=== PATIENT | male | born 1940 | race Caucasian/White ===

== ENCOUNTER → 2016-10-26 | Outpatient (CLI) | payer MEDICARE, MEDICAID ==
[2016-10-26 08:25] LABS: ALBUMIN 3.7 GM/DL (3.2-5.2); ALBUMIN/GLOBULIN RATIO 1.48 (1.00-1.93); ALKALINE PHOSPHATASE 85 U/L (45-117); ALT/SGPT 26 U/L (12-78); ANION GAP 7 MEQ/L (8-16); AST/SGOT 18 U/L (15-37); BILIRUBIN,TOTAL 1.8 MG/DL (0.2-1.0); BLOOD UREA NITROGEN 27 MG/DL (7-18); CALCIUM LEVEL 8.4 MG/DL (8.8-10.2); CARBON DIOXIDE LEVEL 28 MEQ/L (21-32); CHLORIDE LEVEL 108 MEQ/L (98-107); CHOLESTEROL LEVEL 122 MG/DL (<200); CREATININE FOR GFR 1.18 MG/DL (0.70-1.30); GLOMERULAR FILTRATION RATE > 60.0 (>42); GLUCOSE, FASTING 149 MG/DL (83-110); POTASSIUM SERUM 4.2 MEQ/L (3.5-5.1); SODIUM LEVEL 143 MEQ/L (136-145); TOTAL PROTEIN 6.2 GM/DL (6.4-8.2); TRIGLYCERIDES LEVEL 149 MG/DL (<150)
== END ==
LOC: M LAB 07:32
PROVIDERS: ATTEND Nurse Practitioner Family
DX: I11.9 Hypertensive heart disease without heart failure (principal); E78.4 Other hyperlipidemia; E11.9 Type 2 diabetes mellitus without complications

== ENCOUNTER 2016-12-09 18:31 | Emergency (ER) | payer MEDICARE, MEDICAID ==
[~2016-12-09] VITALS: Ht 162.6 cm; Wt 78.0 kg
[2016-12-09] MEDS ORDERED: NABU500T PO (18:42)
[2016-12-09] MEDS ORDERED: GLIP10TA58 PO (18:42)
[2016-12-09] MEDS ORDERED: ATOR1TAB21 PO (18:42)
[2016-12-09] MEDS ORDERED: ALLO100T PO (18:42)
[2016-12-09] MEDS ORDERED: ENAL20TA PO (18:42)
[2016-12-09] MEDS ORDERED: TRAD5TAB PO (18:42)
[2016-12-09] MEDS ORDERED: ATEN25TA PO (18:42)
[2016-12-09] MEDS ORDERED: ALBUTEROL SULFATE 2.5 MG/0.5 ML INH NEB SOLN NEB ONE (20:15)
[2016-12-09 20:27] LABS: BASO % 0.2 % (0.0-1.0); EOS # 0.4 K/mm3 (0.0-0.50); EOS % 2.2 % (0.0-3.0); LARGE UNSTAINED CELL # 0.2 K/mm3 (0.0-0.4); LARGE UNSTAINED CELL % 0.9 % (0.0-4.0); LYMPH # 1.4 K/mm3 (1.5-4.5); LYMPH % 8.1 % (24.0-44.0); MEAN CORPUSCULAR HEMOGLOBIN 32.2 pg (27.0-33.0); MEAN CORPUSCULAR HGB CONC 32.9 g/dl (32.0-36.5); MEAN CORPUSCULAR VOLUME 97.8 fl (80.0-96.0); MONO # 1.3 K/mm3 (0.0-0.8); MONO % 7.2 % (0.0-5.0); NEUTROPHILS # 14.4 K/mm3 (1.8-7.7); NEUTROPHILS % 81.5 % (36.0-66.0); PLATELET COUNT, AUTOMATED 212 k/mm3 (150-450); RED CELL DISTRIBUTION WIDTH 13.6 % (11.5-14.5); WHITE BLOOD COUNT 17.7 K/mm3 (4.0-10.0)
[2016-12-09 20:46] LABS: CALCIUM LEVEL 8.1 MG/DL (8.8-10.2); CREATININE FOR GFR 1.91 MG/DL (0.70-1.30); GLOMERULAR FILTRATION RATE 36.9 (>42)
[2016-12-09] MEDS ORDERED: NS 500 ML IV ONE (21:00)
[2016-12-09] MEDS ORDERED: MUCI600T34 PO (21:43)
[2016-12-09] MEDS ORDERED: DOXY100C37 PO (21:43)
[2016-12-09] MEDS ORDERED: ALBU17IN2 INH (21:43)
[2016-12-09] MEDS ORDERED: DOXYCYCLINE HYCLATE 100 MG TAB PO ONE (21:45)
[2016-12-09 22:04] VITALS: BP 123/67
--- NOTE | 2016-12-10 07:18 | ECGEPIP ---
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 Order Number: [id number] Reading MD: Jimmy Beauchamp Measurements Intervals [place] Rate: 56 P: 12 [place]: 178 QRS: -35 QRSD: 82 T: -7 QT: 382 QTc: 370 Interpretive Statements SINUS BRADYCARDIA MODERATE VOLTAGE CRITERIA FOR LVH, CONSIDER NORMAL VARIANT INFERIOR MYOCARDIAL INFARCTION, PROBABLY OLD SIMILAR TO 03/28/14 Electronically Signed On 12-10-2016 7:17:55 EDT by Jimmy Beauchamp
--- NOTE | 2016-12-10 07:46 | REP ---
Clinical: Shortness of breath . Comparison: 09/08/2013 . Technique: PA and lateral. Findings: The mediastinum and cardiac silhouette are normal. The lung dickerson are clear and without acute consolidation, effusion, or pneumothorax. The skeletal structures are intact and normal. Impression: 1. No acute cardiopulmonary process. Signed by Braulio Rivera MD 12/10/2016 07:38 A
[2016-12-10] MEDS ORDERED: ASPI325T PO (14:23)
== END 2016-12-09 22:09 | disposition home or self-care (01) ==
LOC: M ED 19:17
DX: R06.02 Shortness of breath (principal); E11.649 Type 2 diabetes mellitus with hypoglycemia without coma; E86.0 Dehydration; I10 Essential (primary) hypertension; E78.00 Pure hypercholesterolemia, unspecified; Z88.1 Allergy status to other antibiotic agents; Z88.2 Allergy status to sulfonamides; Z79.899 Other long term (current) drug therapy

== ENCOUNTER 2016-12-10 10:35 | Inpatient (IN) | payer MEDICARE, MEDICAID ==
[~2016-12-10] VITALS: Ht 162.6 cm; Wt 84.0 kg
[~2016-12-10 10:35] MED LIST: ALBU17IN2 INH; ALLO100T PO; ATEN25TA PO; ATOR1TAB21 PO; DOXY100C37 PO; ENAL20TA PO; GLIP10TA58 PO; MUCI600T34 PO; NABU500T PO; TRAD5TAB PO
[2016-12-10 11:46] LABS: BASO % 0.2 % (0.0-1.0); EOS % 0.2 % (0.0-3.0); LARGE UNSTAINED CELL # 0.1 K/mm3 (0.0-0.4); LARGE UNSTAINED CELL % 0.5 % (0.0-4.0); LYMPH # 0.5 K/mm3 (1.5-4.5); LYMPH % 2.8 % (24.0-44.0); MEAN CORPUSCULAR HEMOGLOBIN 31.5 pg (27.0-33.0); MEAN CORPUSCULAR HGB CONC 32.3 g/dl (32.0-36.5); MEAN CORPUSCULAR VOLUME 97.4 fl (80.0-96.0); MONO # 0.6 K/mm3 (0.0-0.8); MONO % 3.9 % (0.0-5.0); NEUTROPHILS % 92.4 % (36.0-66.0); PLATELET COUNT, AUTOMATED 164 k/mm3 (150-450); RED CELL DISTRIBUTION WIDTH 13.5 % (11.5-14.5); WHITE BLOOD COUNT 15.2 K/mm3 (4.0-10.0)
[2016-12-10 11:54] LABS: CALCIUM LEVEL 7.8 MG/DL (8.8-10.2); CREATININE FOR GFR 1.33 MG/DL (0.70-1.30); POTASSIUM SERUM 4.4 MEQ/L (3.5-5.1)
[2016-12-10] MEDS: D5W/0.9% SODIUM CHLORIDE 1,000 ML IV SCH ×2 (12:00→19:38)
--- NOTE | 2016-12-10 12:03 | REP ---
Clinical: Shortness of breath. Comparison: 12/09/2016. Findings: Stable cardiomegaly is appreciated along with tortuous thoracic aorta. Mild pulmonary vascular congestion cannot be excluded. No focal consolidation, effusion, or pneumothorax. Skeletal structures intact. Impression: Mild cardiomegaly. Cannot exclude mild pulmonary vascular congestion. Signed by Braulio Rivera MD 12/10/2016 11:55 A
[2016-12-10] MEDS ORDERED: DEXTROSE 50% 50 ML SYRINGE IV PRN (14:00)
[2016-12-10] MEDS ORDERED: IPRATROPIUM 0.5MG/ALBUTEROL 2.5MG INH SOL UD 3ML (DUONEB)(J7620) NEB PRN (14:00)
[2016-12-10] MEDS ORDERED: GLUCOSE 4 GM CHEW TABLET PO PRN (14:00)
[2016-12-10] MEDS ORDERED: BISACODYL 5 MG TAB PO PRN (14:00)
[2016-12-10] MEDS ORDERED: GLUCAGON FOR INJ 1 MG VIAL (J1610) SC PRN (14:00)
[2016-12-10] MEDS ORDERED: ACETAMINOPHEN TAB 650MG DOSE (2X325MG) PO PRN (14:00)
[2016-12-10] MEDS ORDERED: HEPARIN SOD (PORCINE) 5000 UNITS/ML VIAL SC SCH (14:00)
[2016-12-10] MEDS ORDERED: ASPI325T PO (14:23)
[2016-12-10] MEDS: ENALAPRIL MALEATE 10 MG TAB PO SCH (15:47)
[2016-12-10] MEDS: PANTOPRAZOLE SODIUM 40 MG in D5W MINI-BAG PLUS 50 ML IV SCH ×2 (15:48→19:38)
[2016-12-10] MEDS: ATORVASTATIN 20 MG TAB PO SCH (15:48)
[2016-12-10] MEDS: ATENOLOL 25 MG TAB PO SCH (15:48)
[2016-12-10 16:00] VITALS: BP 168/62
--- NOTE | 2016-12-10 17:24 | HPE ---
DATE OF ADMISSION: 12/10/2016 PRIMARY CARE PROVIDER: Efraín To. CHIEF COMPLAINT: Dizziness and sweats. HISTORY OF PRESENT ILLNESS Mr. Barrientos is a 76-year-old male with past medical history significant for hypertension, diabetes, gout, rheumatoid arthritis and mini-stroke who presents to the emergency department complaining of dizziness and sweats that started two days ago. The patient was seen in the emergency department yesterday, diagnosed with bronchitis and hypoglycemia. He was discharged on albuterol inhaler as well as doxycycline, and his blood sugars were stable upon discharge. He reports that he still did not feel well when he went home. His daughter apparently called him about 10-15 times today and was unable to get a hold of him and therefore called 9--. It is reported that emergency medical services (EMS) found him on the toilet with dark stool and a blood glucose of 38. He was also found to be confused which did improve after he was given oral glucose and started on dextrose 10% (D10) infusion. The patient reports that he did notice that he had dark stools starting today. He takes 325 mg of aspirin [id number], as well as them nabumetone for his arthritis. The patient has never had an endoscopy or colonoscopy done. He also reports that in addition to the sweats and dizziness that started two days ago, he has been having productive cough of yellow sputum. He reports some chills but no fever. No weight loss, chest pain/ pressure, palpitations, shortness of breath, headache, nausea, vomiting, abdominal pain, hematochezia or urinary complaints. In the emergency department, blood pressure was found to be elevated, highest reading was 203/108. The patient reports that he had not taken any of his blood pressure medication today. He was also found to have an elevated white count of 15.2, hemoglobin 12.8, hematocrit 39.5. Creatinine improved to 1.33; it was 1.9 yesterday. At this point in time, hospital service was called to admit. PAST MEDICAL HISTORY 1. Hypertension. 2. Diabetes. 3. Gout. 4. Rheumatoid arthritis. 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 6. Hyperlipidemia PAST SURGICAL HISTORY: None. MEDICATIONS - aspirin 325 mg daily - glipizide 10 mg by mouth daily - Tradjenta 5 mg by mouth daily - nabumetone 250 mg by mouth daily - allopurinol 100 mg daily - atenolol 25 mg daily - atorvastatin 20 mg daily - enalapril 20 mg daily ALLERGIES: SULFA DRUGS (hives and swelling). SOCIAL HISTORY The patient is a former smoker, quit in the 70s. Smoked for less than a year. No alcohol or illicit drug use. He lives alone. No sick contacts. No recent travel and no pets. FAMILY HISTORY Father had history of heart problems, hypertension and had a myocardial infarction ([place]) at 56. The daughter has history of chronic Lyme's disease and son has history of nephrolithiasis. REVIEW OF SYSTEMS GENERAL: The patient admits to chills and feeling warm. No weight loss. He also reports sweats. HEENT: He reports dizziness. No headache. No changes to his vision or hearing. No blurry or double vision. CARDIOVASCULAR: Denies any chest pain or pressure. No palpitations or shortness of breath with exertion. No chronic lower extremity edema. PULMONARY: Positive for productive cough of yellow sputum. No shortness of breath. No hemoptysis. GASTROINTESTINAL: No nausea, vomiting, abdominal pain, diarrhea, constipation, hematochezia. Does report melena. GENITOURINARY: No increased urinary frequency, urgency or dysuria. No hematuria. INTEGUMENT: No unusual rashes or skin lesions. MUSCULOSKELETAL: No unusual joint pains or muscle pains. ENDOCRINE: Positive history of diabetes. No thyroid disorder. NEUROLOGIC: He has occasional numbness of his left hand. No tingling. No syncope. Prior history of a mini-stroke in 1970s. PHYSICAL EXAMINATION VITAL SIGNS: Temperature 96.8, blood pressure 172/82, pulse oximetry 98% on room air, pulse 68, respiratory rate 18. GENERAL: The patient is alert and awake in no acute distress. HEENT: Normocephalic, atraumatic. Extraocular muscles are intact. Pupils are equally round and reactive to light. No scleral icterus. Moist mucosa. NECK: Supple. No cervical lymphadenopathy. No thyromegaly appreciated. No jugular venous distension. HEART: Normal S1, S2, regular rate and rhythm. No murmurs appreciated. LUNGS: Clear to auscultation bilaterally. No rales, rhonchi or wheezing. ABDOMEN: Soft, nontender, nondistended. Positive bowel sounds. No rebound, guarding or rigidity. EXTREMITIES: No cyanosis or edema. Positive pedal pulses bilaterally. SKIN: Warm and dry. No rashes noted. NEUROLOGIC: No focal deficits. Cranial nerves II through XII are grossly intact. Motor and sensation intact. LABORATORY DATA WBC 15.2, hemoglobin 12.8, hematocrit 39.5, platelet count 164. Sodium 142, potassium 4.4, chloride 112, carbon dioxide 25, anion gap 5, BUN 35, creatinine 1.33, GFR 56.0, fasting glucose 143, hemoglobin A1c 6.6, calcium 7.8. MICROBIOLOGY: Blood culture pending. IMAGING: Chest x-ray revealed mild cardiomegaly. Could not exclude mild pulmonary vascular congestion. ASSESSMENT AND PLAN: 1. Hypoglycemia in the setting of a diabetic. The patient was taking glipizide and Tradjenta at home. Both of these medications have been held. His blood sugars have improved after receiving dextrose 5% (D5) normal saline. Hemoglobin A1c was found to be 6.6. Continue to monitor blood sugars every six hours with hypoglycemic protocol. 2. Gastrointestinal (GI) bleed. The patient gives history of melena. Stool occult was found to be positive. Hemoglobin is currently stable at 12.8. We will check hemoglobin and hematocrit every six hours. If found to be trending downwards, consider consulting gastroenterology (GI) at that time. He has never had endoscopy or colonoscopy done. Will hold off from any anticoagulation and put him on thromboembolism deterrent stockings (TEDs) and sequentials. Aspirin and nabumetone that he takes at home have been held. The patient has been started on Protonix drip. 3. Acute kidney injury. The patient presented yesterday with a creatinine of 1.9 and has already began to improve with fluids. Continue to monitor renal function. He denies any chronic kidney disease that he is aware of. 4. Hypertension. Blood pressure was found to be elevated in the emergency department. He had not taken his blood pressure medications. Will resume his enalapril and atenolol. 5. Hypercholesterolemia. Continue with Lipitor. 6. Bronchitis. The patient's chest x-ray does not show any acute infiltrate. He was discharged yesterday with doxycycline which we will continue. DuoNeb breathing treatments as needed. 7. Gout. Continue with allopurinol. 8. History of rheumatoid arthritis. The patient states that the non-steroidal anti-inflammatory drug (NSAID) as well as aspirin helps with this. Both of these have been held. Tylenol as needed. 9. Deep venous thrombosis (DVT) prophylaxis. TEDs and sequentials. The patient will be admitted as inpatient to the progressive care unit (PCU). Dr. Rubin to take over his care in the morning.
[2016-12-10] MEDS: DOXYCYCLINE HYCLATE 100 MG in D5W MINI-BAG PLUS 100 ML IV SCH (18:24)
[2016-12-10 19:40] VITALS: BP 118/76
[2016-12-10 23:59] VITALS: BP 135/64
[2016-12-11] MEDS: PANTOPRAZOLE SODIUM 40 MG in D5W MINI-BAG PLUS 50 ML IV SCH ×5 (01:25→19:45)
[2016-12-11 04:00] VITALS: BP 128/60
[2016-12-11 05:25] LABS: MEAN CORPUSCULAR HEMOGLOBIN 32.1 pg (27.0-33.0); MEAN CORPUSCULAR HGB CONC 32.4 g/dl (32.0-36.5); RED CELL DISTRIBUTION WIDTH 13.6 % (11.5-14.5); WHITE BLOOD COUNT 10.6 K/mm3 (4.0-10.0)
[2016-12-11 05:49] LABS: ANION GAP 6 MEQ/L (8-16); BLOOD UREA NITROGEN 21 MG/DL (7-18); CALCIUM LEVEL 7.5 MG/DL (8.8-10.2); CARBON DIOXIDE LEVEL 24 MEQ/L (21-32); CHLORIDE LEVEL 116 MEQ/L (98-107); CREATININE FOR GFR 1.21 MG/DL (0.70-1.30); GLOMERULAR FILTRATION RATE > 60.0 (>42); GLUCOSE, FASTING 115 MG/DL (83-110); POTASSIUM SERUM 4.1 MEQ/L (3.5-5.1); SODIUM LEVEL 146 MEQ/L (136-145)
[2016-12-11] MEDS: D5W/0.9% SODIUM CHLORIDE 1,000 ML IV SCH (05:53)
[2016-12-11] MEDS: DOXYCYCLINE HYCLATE 100 MG in D5W MINI-BAG PLUS 100 ML IV SCH (05:53)
[2016-12-11 08:00] VITALS: BP 140/66
[2016-12-11] MEDS ORDERED: D5W/0.9% SODIUM CHLORIDE 1,000 ML IV SCH (09:00)
[2016-12-11] MEDS ORDERED: LevoFLOXacin IV 500 MG in APPROPRIATE DILUENT 1 EA IV ONE (09:00)
[2016-12-11 09:08] LABS: ALBUMIN 2.7 GM/DL (3.2-5.2); ALBUMIN/GLOBULIN RATIO 1.04 (1.00-1.93); ALKALINE PHOSPHATASE 55 U/L (45-117); ALT/SGPT 22 U/L (12-78); AST/SGOT 23 U/L (15-37); BILIRUBIN,DIRECT 0.2 MG/DL (0.0-0.2); BILIRUBIN,TOTAL 0.8 MG/DL (0.2-1.0); TOTAL PROTEIN 5.3 GM/DL (6.4-8.2)
[2016-12-11] MEDS: ENALAPRIL MALEATE 10 MG TAB PO SCH (09:42)
[2016-12-11] MEDS: ALLOPURINOL 100 MG TAB PO SCH (09:42)
[2016-12-11] MEDS: ATENOLOL 25 MG TAB PO SCH (09:42)
[2016-12-11] MEDS: ATORVASTATIN 20 MG TAB PO SCH (09:43)
[2016-12-11 12:00] VITALS: BP 145/72
--- NOTE | 2016-12-11 15:45 | IPNPDOC ---
Text Note Date of Service The patient was seen on 12/11/16. NOTE Subjective: Fells well. No additional BM. Denies CP/sob/palpitations. Objective: Vitals: (see below) General: No acute distress, laying comfortably in bed. HEENT: Moist mucous membranes. Neck: No JVD or lymphadenopathy Cardiac: RRR, No murmurs Pulm: Clear to auscultation b/l. No wheezing, rhonchi Abd: NT/ND + BS Ext: No edema or cyanosis Labs (see below) Images: Assessment/Plan 1.Hypoglycemia - 2/2 PO agents, which have been d/c. A1c 6.6, and to be d/c on Metformin only. D5 for now. Stable. 2. UGI - melanotic stool. Baseline Hb 14-15. Spoke with Dr. Branham, who will schedule endoscopy for tomorrow. Hb stable, cont to monitor. PPI. ASA/NSAIDs have been d/c. 3. RENAE - improved. Likely pre-renal. 4. HTN - controlled. initially elevated, however had not taken his BP meds. 5. HLD - on statin 6. Acute Bronchitis - No infiltrate on CXR. On Doxy. 7. Gout- on allopurinol 8. RA - on NSAIDS, which he should avoid given melanotic stools. DVT prophy: SCDs VS,Fishbone, I+O VS, Fishbone, I+O Laboratory Tests 12/10/16 17:00 12/10/16 22:57 12/11/16 05:03 Red Blood Count 3.66 L, Mean Corpuscular Volume 99.0 H, Mean Corpuscular Hemoglobin 32.1, Mean Corpuscular Hemoglobin Concent 32.4, Red Cell Distribution Width 13.6, Calcium Level 7.5 L 12/11/16 11:17 Vital Signs Date Time Temp Pulse Resp B/P (MAP) Pulse Ox O2 Delivery O2 Flow Rate FiO2 12/11/16 09:40 Room Air 12/11/16 08:00 99.3 63 20 140/66 (90) 95 I&O- Last 24 Hours up to 6 AM 12/11/16 05:59 Intake Total 840 ml Output Total 825 ml Balance 15 ml JENNIFER LOPEZ MD December 11, 2016 15:45
[2016-12-11 16:00] VITALS: BP 157/70
[2016-12-11 20:19] VITALS: BP 116/84
[2016-12-11 23:59] VITALS: BP 169/70
[2016-12-12] VITALS (10 sets, daily range): BP systolic 143–178; BP diastolic 58–100
[2016-12-12] MEDS: PANTOPRAZOLE SODIUM 40 MG in D5W MINI-BAG PLUS 50 ML IV SCH ×5 (00:19→21:06)
[2016-12-12 05:13] LABS: MEAN CORPUSCULAR HEMOGLOBIN 32.3 pg (27.0-33.0); MEAN CORPUSCULAR HGB CONC 33.7 g/dl (32.0-36.5); RED CELL DISTRIBUTION WIDTH 13.5 % (11.5-14.5); WHITE BLOOD COUNT 9.4 K/mm3 (4.0-10.0)
[2016-12-12 05:24] LABS: ANION GAP 6 MEQ/L (8-16); BLOOD UREA NITROGEN 14 MG/DL (7-18); CALCIUM LEVEL 7.6 MG/DL (8.8-10.2); CARBON DIOXIDE LEVEL 24 MEQ/L (21-32); CHLORIDE LEVEL 115 MEQ/L (98-107); GLOMERULAR FILTRATION RATE > 60.0 (>42); GLUCOSE, FASTING 98 MG/DL (83-110); POTASSIUM SERUM 4.2 MEQ/L (3.5-5.1); SODIUM LEVEL 145 MEQ/L (136-145)
--- NOTE | 2016-12-12 05:32 | CR ---
DATE OF CONSULTATION: 12/11/2016 REASON FOR CONSULTATION: Dark stool and decreased hemoglobin. HISTORY OF PRESENT ILLNESS: The patient is a 76-year-old man who was admitted on December 10. He presented to the emergency department one day earlier with some dizziness and sweats. He was diagnosed with bronchitis and ordered antibiotics. He did not get to the pharmacy in time to pick up driver his antibiotic. On the he felt unwell. The patient's daughter was unable to contact him by phone and he was picked up by emergency medical services. He was found to have some dark stool in the toilet and his blood glucose was at 38. He apparently was confused when he was found and he was brought to the emergency department for evaluation. The review of his laboratory studies shows that his hemoglobin seems to have fallen several points since his last blood work before his current presentation. The patient has not noticed any dark stool in particular, but does report that he had some Pepto-Bismol for some stomach upset within the several days before coming to the emergency room. The patient has never had a colonoscopy or upper endoscopy and denies any history of peptic ulcer disease. Because of his decreased hemoglobin, I was consulted to evaluate the patient with possible endoscopy. ALLERGIES: The patient reports problems with SULFA drugs. MEDICATIONS PRIOR TO ADMISSION: - Glipizide, Tradjenta, Nabumetone, Allopurinol, Atenolol, Atorvastatin, Enalapril and Aspirin. PAST MEDICAL HISTORY: His medical history is significant for: 1. Hypertension. 2. Diabetes. 3. Gout. 4. Rheumatoid arthritis. 5. Cerebrovascular accident in the 1970s. 6. Hyperlipidemia. PAST SURGICAL HISTORY: Surgical history is entirely negative. SOCIAL HISTORY: He did smoke for a time but then quit 30 or more years ago. He denies any significant alcohol intake. He is currently living alone being a for some seven years or so by his report. FAMILY HISTORY: He reports that his father had some sort of cancer, though he is not sure quite what. He apparently also had heart disease. REVIEW OF SYSTEMS: Review of systems shows no chest pain or palpitations. He has no cough or wheezing right now. He denies any abdominal pain. He has not noticed any hematochezia. He has had no nausea or vomiting but did have some mild stomach upset for several days prior to presenting. He denies any dysuria or hematuria. He has had no muscle or joint pains recently. PHYSICAL EXAMINATION: The patient is a pleasant older man lying quietly on the hospital bed. He is alert, oriented and cooperative. VITAL SIGNS: The patient's most recent vital signs show a temperature of 98.6. His pulse has varied from 47-72 during the course of the day today. Blood pressure is 157/70 most recently with an oxygen saturation on room air of 100%. He is alert, oriented and cooperative. He seems to have a good recollection of his personal medical history. HEENT: Sclerae are anicteric. The skin is warm and dry. Mucous membranes are moist. NECK: The neck is supple without mass. HEART: Heart exam shows a regular rhythm. LUNGS: The lungs are clear to auscultation bilaterally. ABDOMEN: The abdomen is perhaps mildly obese. He has active bowel sounds in all four quadrants. The abdomen is soft and nontender without appreciable mass. EXTREMITIES: Extremities are without edema. He has palpable radial pulses bilaterally. LABORATORY DATA: His laboratory studies show on his blood work today a hemoglobin of 12 with a hematocrit of 36. His chemistry profile from this morning shows a sodium of 146, potassium 4.1, chloride 116, CO2 of 24, BUN of 21, creatinine 1.2 and a glucose of 115. His liver function tests are normal with total protein of 5.3 and albumin of 2.7. His hemoglobin A1c on the was 6.6. Looking back in the medical record of the [facility] is a hemoglobin in March 2016 was 15.5. IMPRESSION: 1. Diminished hemoglobin and hematocrit from previous baseline levels with recent report of dark stool. 2. Diabetes mellitus with hypoglycemia. 3. Bronchitis. 4. Hypercholesterolemia. 5. Hypertension. 6. History of gout. 7. History of rheumatoid arthritis. PLAN: The patient was counseled for upper endoscopy. It is uncertain whether there is any significance to the dark stool reported at that time he was brought to the hospital. He does report having taken some Pepto-Bismol and this can certainly discolor the stool. He has not had any significant epigastric pain but does report having had an upset stomach for which he utilized the Pepto-Bismol. There is no history of peptic ulcer disease or prior bleeding and he has never had an upper endoscopy. It does seem reasonable given the noted drop in his hemoglobin to evaluate him with an upper endoscopy. At some point a colonoscopy would probably be prudent, also given his history of never having had a colon cancer screening procedure. This can be addressed at a later time after discharge. cc: MD DRAKE Alonso
[2016-12-12] MEDS: ENALAPRIL MALEATE 10 MG TAB PO SCH (08:54)
[2016-12-12] MEDS: ALLOPURINOL 100 MG TAB PO SCH (08:55)
[2016-12-12] MEDS: ATORVASTATIN 20 MG TAB PO SCH (08:55)
[2016-12-12] MEDS: LevoFLOXacin IV 250 MG in APPROPRIATE DILUENT 1 EA IV SCH (08:55)
[2016-12-12] MEDS: amLODIPine 5 MG TAB PO SCH (09:00)
--- NOTE | 2016-12-12 10:32 | IPN ---
DATE OF ENCOUNTER: 12/12/2016 SUBJECTIVE: Patient was seen this morning at bedside. No acute overnight issues. He denies any nausea, vomiting, abdominal pain, or diarrhea. No chest pain/pressure, palpitations, shortness of breath. No fevers or chills. Patient is due to have upper endoscopy later on this afternoon. Hemoglobin has been stable. Vitals are also stable. He denies any lightheadedness or dizziness. He does continue to have a cough without significant sputum production. OBJECTIVE: Vital signs: Temperature 98.6. Pulse 57. Respiratory rate 18. Blood pressure 178/77. Pulse ox: 96% on room air. GENERAL: The patient is alert and oriented in no acute distress. HEENT: Normocephalic, atraumatic. Extraocular muscles are intact. Moist mucosa. NECK: Supple. No cervical lymphadenopathy. No thyromegaly appreciated. HEART: Normal S1, S2, regular rate and rhythm. No murmur appreciated. LUNGS: Clear to auscultation bilaterally. No rales, rhonchi or wheezing. ABDOMEN: Soft, nontender, nondistended. Positive bowel sounds. EXTREMITIES: No cyanosis or edema. Positive pedal pulses bilaterally. SKIN: Warm and dry. No rashes noted. NEUROLOGIC: No focal deficits. Cranial nerves II through XII are grossly intact. Motor and sensation intact. LABORATORY DATA: WBC 9.4, hemoglobin 11.9, hematocrit 35.3, platelet count 145. Sodium 145, potassium 4.2, chloride 115, carbon dioxide 24, anion gap 6, BUN 14, creatinine 1.2, GFR greater than 60, fasting glucose 98, calcium 7.6. MICROBIOLOGY: A respiratory panel was negative. Sputum culture pending. Blood culture showed no growth after 24 hours. ASSESSMENT AND PLAN: 1. Gastrointestinal (GI) bleed with history of melena. Hemoglobin is currently stable. Patient will have upper endoscopy later on this afternoon. Aspirin and nabumetone are currently being held. He remains on Protonix drip. We will await for results of upper endoscopy. He is not currently having any GI symptoms. 2. Hypoglycemia in the setting of a diabetic. He has been given dextrose and sodium chloride, blood sugars are stable. Upon discharge we will not resume his Tradjenta or his glipizide, if anything he will be discharged with solely metformin as long as there are no contraindications to this. 3. Bradycardia. Patient's heart rate were in the 50s last night and this morning. His atenolol has been discontinued, he was on 25 mg daily. 4. Hypertension. Blood pressure is suboptimal. Atenolol has now been discontinued. We will continue with enalapril, we will increase this from 20 to 40 mg daily. 5. Hypercholesteremia. Continue with Lipitor. 6. Bronchitis. Doxycycline has been continued. DuoNeb breathing treatments as needed. We will provide Tessalon Perles for cough. 7. Gout. Continue with allopurinol. 8. History of rheumatoid arthritis. Tylenol as needed. His non-steroidal anti-inflammatory drug (NSAID) has been discontinued. 9. Deep venous thrombosis (DVT) prophylaxis. Continue with TEDs and sequentials. My preceptor for this patient encounter was Dr. Maxime Rubin. The preceptor was physically present in the building during the encounter and was fully available. As needed, all aspects of the patient interview, examination, medical decision making process, and medical care plan development were reviewed and approved by the preceptor. The preceptor is aware and concurs with the plan as stated in the body of this note and will attest to such by his/her cosignature. DRAKE
[2016-12-12] MEDS ORDERED: ENALAPRIL MALEATE 10 MG TAB PO ONE (11:00)
--- NOTE | 2016-12-12 13:44 | ECGEPIP ---
Stationary ECG Study 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 No significant change from 12/09/16. Electronically Signed On 12-12-2016 13:43:43 EDT by Nathaniel Melo
[2016-12-12] MEDS ORDERED: PROPOFOL 200 MG/20 ML VIAL As Ordered ONE (18:50)
[2016-12-12] MEDS ORDERED: LR 1,000 ML IV SCH (19:00)
[2016-12-12] MEDS ORDERED: fentaNYL 100 MCG/2 ML INJECTION (J3010) IV PRN (19:00)
--- NOTE | 2016-12-12 19:09 | ROOR ---
Patient Name: Gerber Barrientos Procedure Date: 12/12/2016 5:55 PM Date of : 1940 Age: 76 Room: [facility] Gender: Male Note Status: Finalized Procedure: Upper GI endoscopy Indications: Melena Providers: Fran Branham MD Referring MD: Maxime Rubin Md Requesting Provider: Medicines: Monitored Anesthesia Care Complications: No immediate complications. Procedure: Pre-Anesthesia Assessment: - Prior to the procedure, a History and Physical was performed, and patient medications and allergies were reviewed. The patient is competent. The risks and benefits of the procedure and the sedation options and risks were discussed with the patient. All questions were answered and informed consent was obtained. Patient identification and proposed procedure were verified by the physician, the nurse and the district representative in the procedure room. Mental Status Examination: alert and oriented. Airway Examination: normal oropharyngeal airway and neck mobility. CV Examination: regular rate and rhythm. Prophylactic Antibiotics: The patient does not require prophylactic antibiotics. Prior Anticoagulants: The patient has taken no previous anticoagulant or antiplatelet agents. ASA Grade Assessment: III - A patient with severe systemic disease. After reviewing the risks and benefits, the patient was deemed in satisfactory condition to undergo the procedure. The anesthesia plan was to use monitored anesthesia care (MAC). Immediately prior to administration of medications, the patient was re-assessed for adequacy to receive sedatives. The heart rate, respiratory rate, oxygen saturations, blood pressure, adequacy of pulmonary ventilation, and response to care were monitored throughout the procedure. The physical status of the patient was re-assessed after the procedure. The Endoscope was introduced through the mouth, and advanced to the second part of duodenum. The upper GI endoscopy was accomplished without difficulty. The patient tolerated the procedure well. Findings: The examined esophagus was normal. Multiple non-bleeding small erosions were oriented in a linear array for body to antrum erosions were found in the gastric body and in the gastric antrum. There were no stigmata of recent bleeding. One non-bleeding superficial gastric ulcer was found in the prepyloric region of the stomach. The lesion was 4 mm in largest dimension. The first portion of the duodenum and second portion of the duodenum were normal. Impression: - Normal esophagus. - Gastric erosions without bleeding. - Non-bleeding gastric ulcer. - Normal first portion of the duodenum and second portion of the duodenum. - No specimens collected. Recommendation: - Recommend acid suppression medication. - Resume regular diet. Attending Participation: I personally performed the entire procedure. Fran Branham MD 12/12/2016 7:08:56 PM Number of Addenda: 0 Note Initiated On: 12/12/2016 5:55 PM Estimated Blood Loss: Estimated blood loss: none.
[2016-12-13] MEDS: PANTOPRAZOLE SODIUM 40 MG in D5W MINI-BAG PLUS 50 ML IV SCH ×2 (00:08→08:49)
[2016-12-13 04:45] VITALS: BP 152/79
[2016-12-13 06:06] LABS: MEAN CORPUSCULAR HGB CONC 33.5 g/dl (32.0-36.5); MEAN CORPUSCULAR VOLUME 95.4 fl (80.0-96.0); RED CELL DISTRIBUTION WIDTH 13.4 % (11.5-14.5); WHITE BLOOD COUNT 9.5 K/mm3 (4.0-10.0)
[2016-12-13 06:18] LABS: ANION GAP 7 MEQ/L (8-16); BLOOD UREA NITROGEN 15 MG/DL (7-18); CALCIUM LEVEL 7.8 MG/DL (8.8-10.2); CARBON DIOXIDE LEVEL 26 MEQ/L (21-32); CHLORIDE LEVEL 110 MEQ/L (98-107); CREATININE FOR GFR 1.12 MG/DL (0.70-1.30); GLOMERULAR FILTRATION RATE > 60.0 (>42); GLUCOSE, FASTING 110 MG/DL (83-110); SODIUM LEVEL 143 MEQ/L (136-145)
[2016-12-13 08:00] VITALS: BP 107/58
[2016-12-13] MEDS: LevoFLOXacin IV 250 MG in APPROPRIATE DILUENT 1 EA IV SCH (08:48)
[2016-12-13] MEDS: ATORVASTATIN 20 MG TAB PO SCH (08:50)
[2016-12-13] MEDS: ALLOPURINOL 100 MG TAB PO SCH (08:52)
[2016-12-13 09:00] VITALS: BP 107/58
[2016-12-13] MEDS: amLODIPine 5 MG TAB PO SCH (09:00)
[2016-12-13] MEDS ORDERED: ENALAPRIL MALEATE 10 MG TAB PO SCH (09:00)
[2016-12-13] MEDS ORDERED: OMEP40CA2 PO (10:22)
[2016-12-13] MEDS ORDERED: ENAL20TA PO ×2 (10:22→10:27)
[2016-12-13] MEDS ORDERED: LEVA250T PO (10:22)
[2016-12-13] MEDS ORDERED: METF500T PO (10:27)
--- NOTE | 2016-12-13 22:12 | DSES ---
DATE OF ADMISSION: 12/10/2016 DATE OF DISCHARGE: 12/13/2016 ATTENDING PHYSICIAN: Dr. Laurie Hidalgo DISCHARGE DIAGNOSES: 1. Upper gastrointestinal (GI) bleed. 2. Gastric erosion with non-bleeding gastric ulcer. 3. Hypoglycemia, resolved. 4. Bradycardia, improved. 5. Hypertension. 6. Hypercholesterolemia. 7. Diabetes. 8. Acute bronchitis. 9. Gout. 10. History of rheumatoid arthritis. DISCHARGE MEDICATIONS: - enalapril 20 mg by mouth twice daily - Levaquin 250 mg by mouth daily - metformin 500 mg twice daily - omeprazole 40 mg by mouth daily - allopurinol 100 mg by mouth daily - atorvastatin 20 mg by mouth daily DISCONTINUED MEDICATIONS: - aspirin 325 mg daily - atenolol 25 mg daily - glipizide 10 mg by mouth daily - Tradjenta 5 mg by mouth daily. - nabumetone 250 mg by mouth daily CONSULTANTS: Dr. Branham, surgery. BRIEF HOSPITAL COURSE: Patient originally presented with complaints of dizziness and sweats that started two days prior to admission. He was seen in the emergency department the day prior to presentation and diagnosed with bronchitis as well as hypoglycemia, which resolved with dextrose infusion. He states that he did not feel well when he went home. His daughter tried to call him out 10-15 times and was unable to get a hold of him. Therefore, she called . When emergency medical services (EMS) arrived, they found him on the toilet with dark stool and a blood glucose of 38. He was found to be confused, which did improve after he was given oral glucose and started on dextrose infusion. Patient reports that he started to notice the third stool starting today. He was taking 325 mg of aspirin as well as nabumetone for his arthritis. He had never had endoscopy or colonoscopy done before. He reported sweats and dizziness as well as productive cough and chills. No chest pain/pressure, palpitations, shortness of breath, headache, nausea, vomiting, abdominal pain, hematochezia or urinary complaints. In the emergency department, blood pressure was elevated. Other vitals remained stable. He had an elevated white count 15.2, hemoglobin was 12.8, hematocrit 39.5. Renal function was, at highest, 1.9, which did improve. He was monitored in the hospital with hemoglobin and hematocrit checks every 6 hours. hemoglobin remained stable. His blood sugars remained stable with discontinuation of his glipizide and his Tradjenta. Patient had blood cultures which did not show any growth. Respiratory panel was negative. He had sputum culture which grew out Haemophilus. Chest x-ray during hospitalization revealed mild cardiomegaly. No acute consolidation or effusion. While in the hospital, patient did have episodes of bradycardia and his beta angel was discontinued. He underwent an upper endoscopy, which revealed gastric erosion without bleeding and non-bleeding gastric ulcer. The duodenum was within normal. Recommendations were for acid suppression medication. The patient tolerated a diet throughout this entire time. He reported that he felt significantly better and he was subsequently stable for discharge. On day of discharge, the patient denied any nausea, vomiting, abdominal pain, diarrhea, fevers, chills, chest pain/pressure, palpitations or shortness of breath. Hemoglobin was stable at 12.3. No transfusions were ever required. LABORATORY DATA AT DISCHARGE: WBC 9.5, hemoglobin 12.3, hematocrit 36.8, platelet count 169. Sodium 143, potassium 4.0, chloride 110, carbon dioxide 26, anion gap 7, BUN 15, creatinine 1.12, GFR greater than 60, fasting glucose 110, calcium 7.8. MICROBIOLOGY: As stated above. IMAGING: As stated above. PHYSICAL EXAMINATION: VITAL SIGNS: Temperature 98.3, pulse 87, respiratory rate 22, blood pressure 107/58, pulse oximetry 99% on room air. GENERAL: The patient is awake and alert, in no acute distress. HEENT: Normocephalic, atraumatic. Extraocular muscles are intact. Moist mucosa. NECK: Supple. No cervical lymphadenopathy. No thyromegaly. HEART: Normal S1, S2. Regular rate and rhythm. No murmur appreciated. LUNGS: Clear to auscultation bilaterally. No rales, rhonchi or wheezing. ABDOMEN: Soft, nontender, nondistended. Positive bowel sounds. EXTREMITIES: No cyanosis or edema. Positive pedal pulses bilaterally. SKIN: Warm and dry. No rashes noted. NEUROLOGIC: No focal deficits. Cranial nerves II through XII are grossly intact. Motor and sensation intact. DISCHARGE INSTRUCTIONS: The patient is discharged in stable condition. He should followup with his primary care provider in one week. It was discussed with him that he should certainly get a colonoscopy done, as he has never had one and is past due. States that he would discuss this with his primary care provider for a referral for screening colonoscopy. His nabumetone was discontinued at discharge. Advised the patient to take Tylenol as needed. His aspirin was also held. The patient is to discuss the continued use of aspirin with his primary care provider. Both glipizide and Tradjenta were discontinued. The patient was placed on metformin instead. He denied any contraindication or previous use of metformin. Blood sugars will continue to be monitored by his primary care physician and any adjustments can be made at that time. He should be on a consistent carbohydrate, low-sodium diet. Activity as tolerated. Return to the emergency department with any worsening or recurring symptoms. His beta angel was discontinued secondary to bradycardia and enalapril was increased a 20 mg twice a day. He is being sent home with a few more days of Levaquin for his bronchitis, omeprazole 40 mg daily for his ulcer seen on endoscopy. TIME SPENT ON DISCHARGE: Greater than 30 minutes. My preceptor for this patient encounter was Dr. Laurie Hidalgo. The preceptor was physically present in the building during the encounter and was fully available as needed. All aspects of the patient interview, examination, medical decision-making process, and medical care plan development were reviewed and approved by the preceptor. The preceptor is aware and concurs with the plan as stated in the body of this note and will attest to such by his/her co-signature.
== END 2016-12-13 12:49 | disposition home or self-care (01) | DRG 378 ==
LOC: M ED 12:07 → M ED INP 14:06 → M PCU 23:21
PROVIDERS: ADMIT Internal Medicine Nephrology; ATTEND Internal Medicine
PROC: 0DJ08ZZ Inspection of Upper Intestinal Tract, Via Natural or Artificial Opening Endoscopic (ICD-10-PCS; principal; 2016-12-12 15:00)
DX: K92.2 Gastrointestinal hemorrhage, unspecified (principal); N17.9 Acute kidney failure, unspecified; E11.649 Type 2 diabetes mellitus with hypoglycemia without coma; I10 Essential (primary) hypertension; E78.00 Pure hypercholesterolemia, unspecified; M10.9 Gout, unspecified; M06.9 Rheumatoid arthritis, unspecified; J20.9 Acute bronchitis, unspecified; R00.1 Bradycardia, unspecified; Z79.899 Other long term (current) drug therapy; K25.9 Gastric ulcer, unspecified as acute or chronic, without hemorrhage or perforation; Z88.2 Allergy status to sulfonamides; Z86.73 Personal history of transient ischemic attack (TIA), and cerebral infarction without residual deficits; E78.5 Hyperlipidemia, unspecified

== ENCOUNTER 2017-03-08 00:32 | Emergency (ER) | payer MEDICARE, MEDICAID ==
[~2017-03-08] VITALS: Ht 162.6 cm; Wt 75.0 kg
[~2017-03-08 00:32] MED LIST changes: +ASPI325T PO; -GLIP10TA58 PO; +GLIP1TAB11 PO; +LEVA1TAB PO; +METF500T13 PO; -MUCI600T34 PO; +MUCI600T37 PO; +OMEP40CA2 PO
[2017-03-08] MEDS ORDERED: GLIP1TAB51 (00:43)
[2017-03-08] MEDS ORDERED: ATEN25TA (00:43)
[2017-03-08 01:39] LABS: BASO # 0.1 K/mm3 (0.0-0.2); BASO % 0.5 % (0.0-1.0); EOS # 0.2 K/mm3 (0.0-0.50); EOS % 1.4 % (0.0-3.0); LARGE UNSTAINED CELL # 0.2 K/mm3 (0.0-0.4); LARGE UNSTAINED CELL % 1.2 % (0.0-4.0); LYMPH # 1.6 K/mm3 (1.5-4.5); LYMPH % 10.1 % (24.0-44.0); MEAN CORPUSCULAR HEMOGLOBIN 31.4 pg (27.0-33.0); MEAN CORPUSCULAR HGB CONC 33.2 g/dl (32.0-36.5); MEAN CORPUSCULAR VOLUME 94.4 fl (80.0-96.0); MONO # 1.7 K/mm3 (0.0-0.8); MONO % 12.1 % (0.0-5.0); NEUTROPHILS # 10.8 K/mm3 (1.8-7.7); NEUTROPHILS % 74.7 % (36.0-66.0); PLATELET COUNT, AUTOMATED 184 k/mm3 (150-450); RED CELL DISTRIBUTION WIDTH 13.8 % (11.5-14.5); WHITE BLOOD COUNT 14.5 K/mm3 (4.0-10.0)
[2017-03-08 01:45] LABS: ALBUMIN 3.8 GM/DL (3.2-5.2); ALBUMIN/GLOBULIN RATIO 1.19 (1.00-1.93); BILIRUBIN,DIRECT 0.3 MG/DL (0.0-0.2); BILIRUBIN,TOTAL 1.3 MG/DL (0.2-1.0); CALCIUM LEVEL 9.6 MG/DL (8.8-10.2); CREATININE FOR GFR 1.36 MG/DL (0.70-1.30); GLOMERULAR FILTRATION RATE 54.5 (>42); POTASSIUM SERUM 4.1 MEQ/L (3.5-5.1)
[2017-03-08] MEDS ORDERED: MORPHINE 4 MG/ML 1ML SYRINGE IV ONE (02:00)
[2017-03-08] MEDS ORDERED: NS 1,000 ML IV ONE (02:00)
[2017-03-08] MEDS ORDERED: ISOVUE-370 76% 100ML VIAL (Q9967) As Ordered ONE (02:10)
--- NOTE | 2017-03-08 03:30 | REPUSA ---
CLINICAL HISTORY: Abdominal pain. TECHNIQUE: Multiple axial, sagittal and coronal CT images were obtained through the abdomen and pelvi s after administration of intravenous contrast material. COMMENTS: Mild large bowel fecal stasis. The liver is of uniform attenuation without mass or defect. There is no intra or extrahepatic biliary ductal dilatation. The spleen is normal. The gallbladder is within normal limits. The pancreas is of normal contour and attenuation characteristics. There is no evidence of adrenal mass. Both kidneys demonstrate prompt and equal nephrograms. The kidneys are normal in size, shape and conf iguration. There is no evidence of renal or ureteral mass. No renal or ureteral calculi are identifie d. There is no hydroureter or hydronephrosis. No evidence for appendicitis. There is no bowel wall thickening. No evidence for small or large ellis l obstruction. There is no evidence of abdominal ascites or lymphadenopathy. There is no evidence of intrinsic or extrinsic bladder mass. There is no pelvic ascites or lymphadeno yenifer. Images of the lung bases show no evidence of pleural or parenchymal mass. There are no pleural effusi ons. The bony structures are free of lytic or blastic lesions. Multilevel degenerative changes are seen in volving the thoracolumbar spine. Scattered calcifications are seen involving the aorta and major bran ches compatible with atherosclerosis. Bilateral fat containing inguinal hernias without incarceration. IMPRESSION: Large bowel fecal stasis. No evidence of acute abdominal or pelvic pathology. Prostatomegaly. Thank you for your kind referral of this patient.
[2017-03-08 03:43] VITALS: BP 167/77
[2017-03-08] MEDS ORDERED: LACTULOSE 20 GM/30 ML SYRUP UD PO ONE (03:45)
--- NOTE | 2017-03-08 09:07 | ED PDOC ---
Post-Departure Follow-Up radiology report faxed to Jaz Munguia MD Mar 08, 2017 09:07
== END 2017-03-08 04:22 | disposition home or self-care (01) ==
LOC: M ED 00:32
DX: K59.00 Constipation, unspecified (principal); E11.9 Type 2 diabetes mellitus without complications; I10 Essential (primary) hypertension; E78.5 Hyperlipidemia, unspecified; K21.9 Gastro-esophageal reflux disease without esophagitis; Z87.442 Personal history of urinary calculi; Z88.2 Allergy status to sulfonamides; Z79.84 Long term (current) use of oral hypoglycemic drugs; Z79.899 Other long term (current) drug therapy
CPT/HCPCS: 74177; 80048; 80076; 81001; 82150; 83690; 85025; 87086; 96374; 99283; Q9967

== ENCOUNTER → 2017-09-22 | Outpatient (CLI) | payer MEDICARE, MEDICAID ==
[2017-09-22 12:36] LABS: BASO # 0.1 10^3/uL (0.0-0.2); BASO % 0.5 % (0.0-1.0); EOS # 0.4 10^3/uL (0.0-0.50); EOS % 3.4 % (0.0-3.0); HEMATOCRIT 42.5 % (42.0-52.0); HEMOGLOBIN 13.8 g/dl (14.0-18.0); IMMATURE GRANULOCYTE % 0.9 % (0-3.0); LYMPH # 1.6 10^3/uL (1.5-4.5); LYMPH % 13.1 % (24.0-44.0); MEAN CORPUSCULAR HEMOGLOBIN 30.9 pg (27.0-33.0); MEAN CORPUSCULAR HGB CONC 32.5 g/dl (32.0-36.5); MEAN CORPUSCULAR VOLUME 95.3 fl (80.0-96.0); MONO # 1.1 10^3/uL (0.0-0.8); MONO % 9.3 % (0.0-5.0); NEUTROPHILS # 8.7 10^3/uL (1.8-7.7); NEUTROPHILS % 72.8 % (36.0-66.0); PLATELET COUNT, AUTOMATED 222 10^3/uL (150-450); RED BLOOD COUNT 4.46 10^6/uL (4.30-6.10); RED CELL DISTRIBUTION WIDTH 14.1 % (11.5-14.5); WHITE BLOOD COUNT 11.9 10^3/uL (4.0-10.0)
[2017-09-22 13:50] LABS: ALBUMIN 3.7 GM/DL (3.2-5.2); ALBUMIN/GLOBULIN RATIO 1.28 (1.00-1.93); ALKALINE PHOSPHATASE 104 U/L (45-117); ALT/SGPT 25 U/L (12-78); ANION GAP 6 MEQ/L (8-16); AST/SGOT 24 U/L (7-37); BILIRUBIN,TOTAL 0.9 MG/DL (0.2-1.0); BLOOD UREA NITROGEN 23 MG/DL (7-18); CALCIUM LEVEL 8.8 MG/DL (8.8-10.2); CARBON DIOXIDE LEVEL 30 MEQ/L (21-32); CHLORIDE LEVEL 106 MEQ/L (98-107); CHOLESTEROL LEVEL 178 MG/DL (<200); CHOLESTEROL RISK RATIO 4.684 (<5); CREATININE FOR GFR 1.34 MG/DL (0.70-1.30); GLOMERULAR FILTRATION RATE 55.3 (>42); GLUCOSE, FASTING 137 MG/DL (70-100); HDL CHOLESTEROL 38 MG/DL (>40); LDL CHOLESTEROL 82.2 MG/DL (<100); NON-HDL-C 140 MG/DL; POTASSIUM SERUM 4.7 MEQ/L (3.5-5.1); SODIUM LEVEL 142 MEQ/L (136-145); TOTAL PROTEIN 6.6 GM/DL (6.4-8.2); TRIGLYCERIDES LEVEL 289 MG/DL (<150)
== END ==
LOC: M LAB 11:57
DX: E78.4 Other hyperlipidemia (principal); E11.9 Type 2 diabetes mellitus without complications
CPT/HCPCS: 80053

== ENCOUNTER 2018-03-06 21:14 | Emergency (ER) | payer MEDICARE, MEDICAID ==
[2018-03-06] MEDS: METOCLOPRAMIDE INJ 10MG/2ML VIAL (J2765) IV (23:10)
[2018-03-06] MEDS: NS 1,000 ML IV (23:10)
[2018-03-06 23:16] LABS: BASO # 0.1 10^3/uL (0.0-0.2); BASO % 0.5 % (0.0-1.0); EOS # 0.3 10^3/uL (0.0-0.50); EOS % 2.6 % (0.0-3.0); HEMATOCRIT 42.4 % (42.0-52.0); HEMOGLOBIN 13.7 g/dl (13.5-17.5); IMMATURE GRANULOCYTE % 1.1 % (0-3.0); LYMPH # 1.7 10^3/uL (1.5-4.5); LYMPH % 12.6 % (24.0-44.0); MEAN CORPUSCULAR HEMOGLOBIN 31.8 pg (27.0-33.0); MEAN CORPUSCULAR HGB CONC 32.3 g/dl (32.0-36.5); MEAN CORPUSCULAR VOLUME 98.4 fl (80.0-96.0); MONO # 1.5 10^3/uL (0.0-0.8); MONO % 11.3 % (0.0-5.0); NEUTROPHILS # 9.4 10^3/uL (1.8-7.7); NEUTROPHILS % 71.9 % (36.0-66.0); PLATELET COUNT, AUTOMATED 170 10^3/uL (150-450); RED BLOOD COUNT 4.31 10^6/uL (4.30-6.10); RED CELL DISTRIBUTION WIDTH 13.8 % (11.5-14.5); WHITE BLOOD COUNT 13.1 10^3/uL (4.0-10.0)
[2018-03-07 00:40] LABS: ALKALINE PHOSPHATASE 84 U/L (45-117); ALT/SGPT 21 U/L (12-78); ANION GAP 10 MEQ/L (8-16); AST/SGOT 16 U/L (7-37); BILIRUBIN,TOTAL 0.6 MG/DL (0.2-1.0); BLOOD UREA NITROGEN 28 MG/DL (7-18); CARBON DIOXIDE LEVEL 24 MEQ/L (21-32); CHLORIDE LEVEL 116 MEQ/L (98-107); CREATININE FOR GFR 1.33 MG/DL (0.70-1.30); GLOMERULAR FILTRATION RATE 55.8 (>42); GLUCOSE, FASTING 95 MG/DL (70-100); POTASSIUM SERUM 3.8 MEQ/L (3.5-5.1); SODIUM LEVEL 150 MEQ/L (136-145)
[2018-03-07 00:41] LABS: ALBUMIN 3.1 GM/DL (3.2-5.2); ALBUMIN/GLOBULIN RATIO 1.35 (1.00-1.93); AMYLASE 78 U/L (25-115); BILIRUBIN,DIRECT 0.1 MG/DL (0.0-0.2); LIPASE 327 U/L (73-393); TOTAL PROTEIN 5.4 GM/DL (6.4-8.2)
[2018-03-07 08:29] LABS: BEDSIDE GLUCOSE 96 MG/DL (83-110)
== END 2018-03-07 01:30 | disposition home or self-care (01) ==
LOC: M ED 21:14
DX: K52.9 Noninfective gastroenteritis and colitis, unspecified (principal); N18.3 Chronic kidney disease, stage 3 (moderate); E86.0 Dehydration; E11.9 Type 2 diabetes mellitus without complications; I12.9 Hypertensive chronic kidney disease with stage 1 through stage 4 chronic kidney disease, or unspecified chronic kidney disease; Z86.73 Personal history of transient ischemic attack (TIA), and cerebral infarction without residual deficits; Z79.899 Other long term (current) drug therapy; Z79.84 Long term (current) use of oral hypoglycemic drugs; Z88.1 Allergy status to other antibiotic agents; Z88.2 Allergy status to sulfonamides; F17.210 Nicotine dependence, cigarettes, uncomplicated
CPT/HCPCS: J2765

== ENCOUNTER → 2018-05-24 | Outpatient (CLI) | payer MEDICARE, MEDICAID ==
[2018-05-24 14:55] LABS: BASO # 0.1 10^3/uL (0.0-0.2); BASO % 0.5 % (0.0-1.0); EOS # 0.3 10^3/uL (0.0-0.50); EOS % 2.4 % (0.0-3.0); HEMATOCRIT 41.7 % (42.0-52.0); HEMOGLOBIN 13.6 g/dl (13.5-17.5); LYMPH # 1.7 10^3/uL (1.5-4.5); LYMPH % 11.8 % (24.0-44.0); MEAN CORPUSCULAR HEMOGLOBIN 31.9 pg (27.0-33.0); MEAN CORPUSCULAR HGB CONC 32.6 g/dl (32.0-36.5); MEAN CORPUSCULAR VOLUME 97.7 fl (80.0-96.0); MONO # 1.6 10^3/uL (0.0-0.8); MONO % 10.9 % (0.0-5.0); NEUTROPHILS # 10.6 10^3/uL (1.8-7.7); NEUTROPHILS % 73.4 % (36.0-66.0); PLATELET COUNT, AUTOMATED 190 10^3/uL (150-450); RED BLOOD COUNT 4.27 10^6/uL (4.30-6.10); RED CELL DISTRIBUTION WIDTH 13.4 % (11.5-14.5); WHITE BLOOD COUNT 14.4 10^3/uL (4.0-10.0)
[2018-05-24 15:17] LABS: ALBUMIN 3.5 GM/DL (3.2-5.2); ALBUMIN/GLOBULIN RATIO 1.25 (1.00-1.93); ALKALINE PHOSPHATASE 90 U/L (45-117); ALT/SGPT 25 U/L (12-78); ANION GAP 11 MEQ/L (8-16); AST/SGOT 20 U/L (7-37); BILIRUBIN,TOTAL 0.8 MG/DL (0.2-1.0); BLOOD UREA NITROGEN 24 MG/DL (7-18); CALCIUM LEVEL 8.8 MG/DL (8.8-10.2); CARBON DIOXIDE LEVEL 25 MEQ/L (21-32); CHLORIDE LEVEL 111 MEQ/L (98-107); CHOLESTEROL LEVEL 186 MG/DL (<200); CREATININE FOR GFR 1.37 MG/DL (0.70-1.30); GLOMERULAR FILTRATION RATE 53.9 (>42); GLUCOSE, FASTING 101 MG/DL (70-100); HDL CHOLESTEROL 40 MG/DL (>40); LDL CHOLESTEROL 118 MG/DL (<100); NON-HDL-C 146 MG/DL; POTASSIUM SERUM 4.4 MEQ/L (3.5-5.1); SODIUM LEVEL 147 MEQ/L (136-145); TOTAL PROTEIN 6.3 GM/DL (6.4-8.2); TRIGLYCERIDES LEVEL 139 MG/DL (<150)
== END ==
LOC: M LAB 13:43
DX: I11.9 Hypertensive heart disease without heart failure (principal); E78.2 Mixed hyperlipidemia
CPT/HCPCS: 80053

== ENCOUNTER 2018-05-27 11:41 | Observation (INO) | payer MEDICARE, MEDICAID ==
[~2018-05-27] VITALS: Ht 162.6 cm; Wt 91.0 kg
[~2018-05-27 11:41] MED LIST changes: +GLIP1TAB51 PO; -LEVA1TAB PO; +LEVA250T13 PO; +ZOFR4TAB14 PO
[2018-05-27 13:12] LABS: BASO % 0.1 % (0.0-1.0); EOS # 0.4 10^3/uL (0.0-0.50); HEMATOCRIT 37.6 % (42.0-52.0); HEMOGLOBIN 12.2 g/dl (13.5-17.5); LYMPH # 0.9 10^3/uL (1.5-4.5); LYMPH % 4.3 % (24.0-44.0); MEAN CORPUSCULAR HEMOGLOBIN 31.7 pg (27.0-33.0); MEAN CORPUSCULAR HGB CONC 32.4 g/dl (32.0-36.5); MEAN CORPUSCULAR VOLUME 97.7 fl (80.0-96.0); MONO % 11.2 % (0.0-5.0); NEUTROPHILS # 17.5 10^3/uL (1.8-7.7); NEUTROPHILS % 81.1 % (36.0-66.0); PLATELET COUNT, AUTOMATED 164 10^3/uL (150-450); RED BLOOD COUNT 3.85 10^6/uL (4.30-6.10); WHITE BLOOD COUNT 21.6 10^3/uL (4.0-10.0)
--- NOTE | 2018-05-27 13:21 | REP ---
ACUTE ABDOMINAL SERIES: 05/27/2018. Clinical history: Abdominal pain. Comparison: 03/06/2018. PA chest: Both lungs are adequately inflated. There is no effusion or lateral pleural thickening. No infiltrate or mass. The heart is not grossly enlarged. Aorta is tortuous but without aneurysm. It is unchanged. Airway midline. No free air under the diaphragm. Degenerative changes spine and shoulders are stable. Flat upright abdomen: Scattered gas throughout the colon and small bowel without dilatation of loops, air-fluid levels in the small bowel, mass or free air. No abnormal calcifications. Degenerative changes in the spine as before. No free subdiaphragmatic air. Impression: 1. Nonspecific gas pattern with gas scattered throughout, nondilated small bowel loops without air-fluid levels. Colon with stool and gas scattered without obstruction. 2. No abnormal soft-tissue calcification or masses. PA chest without acute finding. Electronically Signed by Tre Sunshine MD 05/27/2018 04:12 P
[2018-05-27 13:37] LABS: MONO # 2.4 10^3/uL (0.0-0.8)
[2018-05-27 13:41] LABS: BLOOD UREA NITROGEN 24 MG/DL (7-18); CALCIUM LEVEL 7.8 MG/DL (8.8-10.2); CARBON DIOXIDE LEVEL 25 MEQ/L (21-32); CHLORIDE LEVEL 108 MEQ/L (98-107); CREATININE FOR GFR 1.36 MG/DL (0.70-1.30); GLOMERULAR FILTRATION RATE 54.4 (>42); GLUCOSE, FASTING 181 MG/DL (70-100); POTASSIUM SERUM 4.1 MEQ/L (3.5-5.1); SODIUM LEVEL 141 MEQ/L (136-145)
[2018-05-27] MEDS ORDERED: ISOVUE-370 76% 100ML VIAL (Q9967) As Ordered ONE (13:53)
[2018-05-27] MEDS ORDERED: NS 1,000 ML IV ONE (14:00)
[2018-05-27 14:25] LABS: ALT/SGPT 20 U/L (12-78); BILIRUBIN,TOTAL 1.2 MG/DL (0.2-1.0)
[2018-05-27 14:26] LABS: ALBUMIN 2.8 GM/DL (3.2-5.2); AMYLASE 52 U/L (25-115); BILIRUBIN,DIRECT 0.3 MG/DL (0.0-0.2); LIPASE 377 U/L (73-393); TOTAL PROTEIN 5.6 GM/DL (6.4-8.2); TROPONIN I < 0.02 NG/ML (< 0.10)
[2018-05-27 14:27] LABS: CK-MB VALUE MASS 4.1 NG/ML (<3.6); CPK CREATINE PHOSPHOKINASE 121 U/L (39-308); MB/CK RELATIVE INDEX 3.38 (< OR =4)
[2018-05-27] MEDS ORDERED: ONDA4TAB5 PO (15:00)
[2018-05-27] MEDS ORDERED: NS 500 ML IV ONE (15:00)
[2018-05-27] MEDS ORDERED: GLIP1TAB51 PO (15:00)
[2018-05-27] MEDS ORDERED: ENAL20TA PO (15:00)
[2018-05-27] MEDS ORDERED: METF500T13 PO (15:00)
[2018-05-27] MEDS ORDERED: PIPERACILLIN/TAZOBACTAM SOD 4.5 GM in D5W MINI-BAG PLUS 50 ML IV ONE (15:30)
[2018-05-27] MEDS ORDERED: ONDANSETRON 4 MG TAB (S0181) PO PRN (18:15)
--- NOTE | 2018-05-27 18:18 | ECGEPIP ---
Stationary ECG Study [facility] - ED Test Date: 2018-05-27 Pat Name: OBI SCHUSTER Department: Room: - Gender: M Toter: donovan : 1940 Requested By: Kasie Rivas Order Number: [id number] Reading MD: Kasie Rivas Measurements Intervals [place] Rate: 62 P: 21 FL: 195 QRS: -49 QRSD: 95 T: -15 QT: 363 QTc: 370 Interpretive Statements SINUS RHYTHM LAD LAFB PATTERN CONSISTENT WITH PULMONARY DISEASE VOLTAGE CRITERIA FOR LVH INFERIOR MYOCARDIAL INFARCTION, PROBABLY OLD NONSPECIFIC ST T WAVE CHANGES CW 12/12/[address] T WAVE CHANGES Electronically Signed On 05-27-2018 18:18:19 EST by Kasie Rivas
[2018-05-27] MEDS ORDERED: GLUCAGON FOR INJ 1 MG VIAL (J1610) SC PRN (20:15)
[2018-05-27] MEDS ORDERED: DEXTROSE 50% 50 ML SYRINGE IV PRN (20:15)
[2018-05-27] MEDS ORDERED: GLUCOSE 4 GM CHEW TABLET PO PRN (20:15)
[2018-05-27 22:30] VITALS: BP 174/88
[2018-05-27] MEDS: ENALAPRIL MALEATE 10 MG TAB PO SCH (22:33)
[2018-05-27] MEDS: LACTULOSE 20 GM/30 ML SYRUP UD PO SCH (22:33)
[2018-05-27] MEDS: HEPARIN SOD (PORCINE) 5000 UNITS/ML VIAL SC SCH (22:34)
[2018-05-27] MEDS: HumaLOG INSULIN (NovoLOG) PER UNIT SC SCH (22:45)
[2018-05-28] MEDS: NS 1,000 ML IV SCH ×2 (03:50→23:18)
[2018-05-28] MEDS: HEPARIN SOD (PORCINE) 5000 UNITS/ML VIAL SC SCH ×3 (05:45→21:09)
[2018-05-28 06:00] VITALS: BP 159/82
[2018-05-28 07:16] LABS: HEMATOCRIT 35.7 % (42.0-52.0); HEMOGLOBIN 11.4 g/dl (13.5-17.5); MEAN CORPUSCULAR HEMOGLOBIN 31.5 pg (27.0-33.0); MEAN CORPUSCULAR HGB CONC 31.9 g/dl (32.0-36.5); MEAN CORPUSCULAR VOLUME 98.6 fl (80.0-96.0); PLATELET COUNT, AUTOMATED 173 10^3/uL (150-450); RED BLOOD COUNT 3.62 10^6/uL (4.30-6.10); WHITE BLOOD COUNT 16.8 10^3/uL (4.0-10.0)
--- NOTE | 2018-05-28 07:20 | REP ---
CT ABDOMEN PELVIS WITH IV CONTRAST ONLY: 05/27/2018 CLINICAL HISTORY: Leukocytosis, constipated. COMPARISON: 03/08/2017 CT. TECHNIQUE: Bolus of 100 mL Isovue 370, scanning through the abdomen pelvis with coronal and sagittal reconstructions reviewed. FINDINGS: CT ABDOMEN: Lung bases show minor dependent atelectasis without infiltrate or effusion. Heart size not grossly enlarged. There is no pericardial thickening or effusion. Tiny hiatal hernia suspected. There is diffuse atherosclerotic plaque in the aorta without aneurysm or dissection. Adrenal glands are normal. There is no splenomegaly or focal splenic lesion nor adjacent ascites. The liver is without mass, cyst, dilated duct or enlargement. No perihepatic ascites. Gallbladder shows no calcified stone or mass. The pancreas without mass, stone, ductal dilatation or other acute finding. Kidneys show lobation without stone, hydronephrosis or hydroureter on the right. The left kidney shows tiny pyramidal calcifications lower pole but no hydronephrosis, hydroureter or ureteral stone. No periaortic or retroperitoneal pathologic sized lymphadenopathy. Small bowel loops are without dilatation or inflammatory change. The cecum is at or just above the level of the iliac crest and without inflammatory changes. Right colon, flexures, transverse colon and abdominal portion left colon unremarkable. Scattered stool and gas without dilatation or constipation. Lung window review of all CT slices abdomen pelvis shows no perforation or free air. Bone windows show degenerative disc and facet arthritic changes lumbar spine and lower thoracic spine. Bilateral L5 spondylolysis with grade 1 spondylolisthesis of L5 on S1 noted. The visualized ribs are without acute finding. CT PELVIS: The bony sacrum, SI joints, iliac bones and ischia are unremarkable, acetabuli and hip show minimal degenerative change without destructive lesion or fracture. No ureteral dilatation or stone on either side. The bladder shows partial filling but no wall thickening, mass or stone. Small bowel loops in the pelvis were unremarkable. Distal left colon, sigmoid and rectum are without signs of colitis or diverticulitis. There are a few scattered diverticula. There is no ventral or inguinal hernia, pelvic ascites or mass. No ventral or inguinal hernia. IMPRESSION: 1. There is no CT evidence of obstruction or colonic mass. I see no constipation, colitis or diverticulitis. No abscess, perforation or free air. A few scattered diverticula in the distal left colon and sigmoid. 2. Small bowel loops unremarkable. No appendicitis. 3. No renal, ureteral or bladder calculi. 4. Heavy atherosclerotic plaque and calcification aorta without aneurysm or significant stenosis. There is a small hiatal hernia. 5. Bilateral all five spondylolysis with some degenerative disc and facet changes lumbar spine. No other significant or acute finding. Electronically Signed by Tre Sunshine MD 05/28/2018 10:06 A
[2018-05-28] MEDS ORDERED: glipiZIDE XL 5 MG TABCR PO SCH (07:30)
[2018-05-28 07:48] LABS: THYROID STIMULATING HORMONE 2.16 uIU/ML (0.358-3.740)
[2018-05-28] MEDS ORDERED: metFORMIN (GLUCOPHAGE) 500 MG TAB PO SCH (08:00)
[2018-05-28] MEDS: HumaLOG INSULIN (NovoLOG) PER UNIT SC SCH ×4 (08:47→21:00)
[2018-05-28] MEDS: ENALAPRIL MALEATE 10 MG TAB PO SCH ×2 (08:47→21:09)
[2018-05-28] MEDS: ATENOLOL 25 MG TAB PO SCH (08:47)
[2018-05-28] MEDS: ALLOPURINOL 100 MG TAB PO SCH (08:48)
[2018-05-28] MEDS: LACTULOSE 20 GM/30 ML SYRUP UD PO SCH ×2 (08:48→21:00)
[2018-05-28] MEDS: ATORVASTATIN 20 MG TAB PO SCH (08:48)
[2018-05-28 09:19] LABS: ALBUMIN 2.5 GM/DL (3.2-5.2); BILIRUBIN,DIRECT 0.2 MG/DL (0.0-0.2); BILIRUBIN,TOTAL 0.9 MG/DL (0.2-1.0); CALCIUM LEVEL 8.1 MG/DL (8.8-10.2); CREATININE FOR GFR 1.28 MG/DL (0.70-1.30); GLOMERULAR FILTRATION RATE 58.3 (>42); POTASSIUM SERUM 4.3 MEQ/L (3.5-5.1); TOTAL PROTEIN 5.9 GM/DL (6.4-8.2)
--- NOTE | 2018-05-28 10:00 | IPNPDOC ---
Subjective Date Seen The patient was seen on 05/28/18. Subjective Chief Complaint/HPI Patient is a 77 y/o male with history of CAD, gout, DM II, and HTN presenting with no bowel movement for 2 days with abdominal pain and bloating. Events since last encounter Patient was seen this morning sitting up in bed. He states that he is "back to normal" and that his constipation, abdominal pain, and bloating have all resolved. He also reports that he was coughing up yellow phlegm yesterday, which has also resolved today. He states that at 3 am this morning, he began to have bowel movements, and has had 4 so far this morning. Both the abdominal x-ray and CT did not show obstruction. White count has decreased to 16.8 and the patient has remained afebrile. Blood cultures are still pending. General: Denies: Chills, Night Sweats Constitutional: Denies: Chills, Fever, Night Sweats ENT: Denies: Head Aches Pulmonary: Denies: Dyspnea, Cough, Pleuritic Chest Pain Cardiovascular: Denies: Chest Pain, Palpitations Gastrointestinal: Reports: Diarrhea; Denies: Nausea, Vomiting, Abdominal Pain Psych: Reports: Mood Normal Objective Physical Examination General Exam: Positive: Alert, Cooperative, No Acute Distress Eye Exam: Positive: PERRLA, Sclera icteric ENT Exam: Positive: Atraumatic Neck Exam: Positive: Supple Chest Exam: Positive: Clear to auscultation; Negative: Rales, Rhonchi, Wheezing Heart Exam: Positive: Rate Normal, Normal S1, Normal S2; Negative: Gallops, Murmurs, Rubs Abdomen Exam: Positive: BS Hyperactive, Soft; Negative: Tenderness Extremity Exam: Positive: Normal pulses; Negative: Cyanosis, Edema Neuro Exam: Positive: Normal Speech Psych Exam: Positive: Mental status NL, Mood NL Assessment /Plan Assessment Elevated white count - Decreased from 21.6 to 16.8 today - Remains afebrile - Lactic acid WNL - Blood cultures pending - Will continue to monitor Constipation - Patient reports no bowel movement for 2 days with abdominal pain and bloating - Received Lactulose - Has had 4 bowel movements this morning History of gout - c/w Allopurinol HTN - c/w Atenolol and Enalapril Dyslipidemia - c/w Atorvastatin Diabetes Mellitus type 2 - c/w Insulin per protocol DVT prophylaxis - c/w Heparin SC Q8H Plan/VTE VTE Prophylaxis Ordered?: Yes Disposition Waiting on blood cultures to look for source of infection. Will continue to monitor for signs of infection. VS, I&O, 24H, [facility] Vital Signs/I&O Vital Signs Date Time Temp Pulse Resp B/P (MAP) Pulse Ox O2 Delivery O2 Flow Rate FiO2 05/28/18 08:47 159/82 05/28/18 08:47 67 05/28/18 06:00 98.4 18 96 Room Air I&O- Last 24 Hours up to 6 AM 05/28/18 06:00 Output Total 275 ml Balance -275 ml Laboratory Data 24H LABS Laboratory Tests 2 05/27/18 13:06: Immature Granulocyte % (Auto) 1.3, White Blood Count 21.6H, Red Blood Count 3.85L, Hemoglobin 12.2L, Hematocrit 37.6L, Mean Corpuscular Volume 97.7H, Mean Corpuscular Hemoglobin 31.7, Mean Corpuscular Hemoglobin Concent 32.4, Red Cell Distribution Width 13.4, Platelet Count 164, Neutrophils (%) (Auto) 81.1H, Lymphocytes (%) (Auto) 4.3L, Monocytes (%) (Auto) 11.2H, Eosinophils (%) (Auto) 2.0, Basophils (%) (Auto) 0.1, Neutrophils # (Auto) 17.5H, Lymphocytes # (Auto) 0.9L, Monocytes # (Auto) 2.4H, Eosinophils # (Auto) 0.4, Basophils # (Auto) 0.0, Nucleated Red Blood Cells % (auto) 0.0, Anion Gap 8, Glomerular Filtration Rate 54.4, Calcium Level 7.8L, Aspartate Amino Transf (AST/SGOT) 16, Alanine Aminot ransferase (ALT/SGPT) 20, Alkaline Phosphatase 82, Total Bilirubin 1.2H, Direct Bilirubin 0.3H, Total Creatine Kinase 121, Creatine Kinase MB 4.1H, Creatine Kinase MB Relative Index 3.38, Troponin I < 0.02, Total Protein 5.6L, Albumin 2.8L, Albumin/Globulin Ratio 1.00, Amylase Level 52, Lipase 377 05/27/18 13:58: Lactic Acid Level 1.6 05/27/18 15:15: Urine Color YELLOW, Urine Appearance CLEAR, Urine pH 7.0, Urine Specific Spring 1.041, Urine Protein 1+H, Urine Glucose (UA) NEGATIVE, Urine Ketones NEGATIVE, Urine Blood 1+H, Urine Nitrite NEGATIVE, Urine Bilirubin NEGATIVE, Urine Urobilinogen 0.2, Urine Leukocyte Esterase NEGATIVE, Urine WBC (Auto) 1, Urine RBC (Auto) 3, Urine Hyaline Casts (Auto) 0, Urine Bacteria (Auto) NEGATIVE, Urine Squamous Epithelial Cells 0, Urine Sperm (Auto) 05/27/18 22:30: Bedside Glucose (Misc Panel) 156H 05/28/18 06:52: Bedside Glucose (Misc Panel) 119H 05/28/18 07:03: Nucleated Red Blood Cells % (auto) 0.0, Thyroid Stimulating Hormone (TSH) 2.160 CBC/BMP Laboratory Tests 05/27/18 13:06 Red Blood Count 3.85 L, Mean Corpuscular Volume 97.7 H, Mean Corpuscular Hemoglobin 31.7, Mean Corpuscular Hemoglobin Concent 32.4, Red Cell Distribution Width 13.4, Neutrophils (%) (Auto) 81.1 H, Lymphocytes (%) (Auto) 4.3 L, Monocytes (%) (Auto) 11.2 H, Eosinophils (%) (Auto) 2.0, Basophils (%) (Auto) 0.1, Neutrophils # (Auto) 17.5 H, Lymphocytes # (Auto) 0.9 L, Monocytes # (Auto) 2.4 H, Eosinophils # (Auto) 0.4, Basophils # (Auto) 0.0 05/28/18 07:03 Red Blood Count 3.62 L, Mean Corpuscular Volume 98.6 H, Mean Corpuscular Hemoglobin 31.5, Mean Corpuscular Hemoglobin Concent 31.9 L, Red Cell Distribution Width 13.2 Microbiology Microbiology 05/27/18 Blood Culture, Received Pending 05/27/18 Blood Culture, Received Pending DAY,LIANNA MARC-III May 28, 2018 09:06
[2018-05-28 14:00] VITALS: BP 162/77
--- NOTE | 2018-05-28 15:50 | HPE ---
DATE OF ADMISSION: 05/27/2018 77-year-old male with past medical history of hypertension, diabetes and chronic kidney disease (CKD) III, who presents to the emergency room secondary to fecal retention. He says he has not had a bowel movement in approximately 4 days so he came to the emergency room (ER) for evaluation. Lab work was initially sent out and patient was found to have a very high isolated white count of 21.6 thousand. Patient denies any upper respiratory symptoms, subjective feeling fevers, aches or chills. No abdominal pain. No nausea or vomiting. No contact with anyone sick in the last week. He was given a Fleet enema in the ER with moderate amounts of bowel movement (BM). Chest x-ray did not show any consolidation and the abdominal CT did not show any acute pathology. Abdominal x-ray just showed some fecal retention but no obstruction. He will be admitted observation status for further management. Again, past medical history of hypertension, diabetes, hyperlipidemia, gout. He has DRUG ALLERGIES to SULFA MEDICATION. Family history is negative for any coronary disease. Social history: Patient denies tobacco, alcohol or illicit drugs. Medications he takes at home are as follows: - allopurinol 100 mg orally daily - atenolol 25 mg orally daily - atorvastatin 20 mg orally daily - enalapril 20 mg by mouth orally daily - glipizide 10 mg orally daily - metformin 500 mg orally twice daily - Zofran 4 mg orally every 4 hours as needed Review of systems is negative all 10 remainder review of systems as mentioned in history of present illness (HPI). Vital signs: Blood pressure is 145/61. Heart rate is 78, regular. Respiratory rate 16. Temperature 96. Oxygen saturation 96% on room air. Head is normocephalic, atraumatic. Neck supple. No jugular venous distention (JVD). Lungs are clear to auscultation. S1, S2 audible. No murmurs appreciated. Abdomen is distended with tympany, positive bowel sounds. No pedal edema. Skin intact. Neurologic examination: Patient awake, alert, oriented times three. Labs: WBC is 21.6. Hemoglobin is 12.2. Hematocrit 37.6. Platelets are 164,000. Chemistries: Sodium 141. Potassium is 4.1. Chloride 108. CO2 is 25. BUN 24. Creatinine 1.36. Lactic acid is 1.6. Lipase 377. AST is 16. ALT 20. Total bilirubin 1.2. Direct bilirubin 0.3. IMPRESSION: 1. Leukocytosis. 2. Fecal retention. PLAN: Patient to be admitted to medical-surgical floor on observation status. I am going start the patient on lactulose 30 mL by mouth twice at 12 p.m., and then the patient should she be started on Colace and Senna upon discharge. Also upon discharge, the patient will also be recommended to follow outpatient hematology clinic though there is no obvious etiology or anything acute that can be done in the hospital this isolated leukocytosis needs to be addressed. I spoke with the daughter personally regarding this concern in the patient, and they both understood and verbalized and are in agreement. Will continue all his preadmission medications and will continue following his care on the medical-surgical floor.
[2018-05-28 20:00] VITALS: BP 159/72
[2018-05-29 05:47] VITALS: BP 135/73
[2018-05-29] MEDS: HEPARIN SOD (PORCINE) 5000 UNITS/ML VIAL SC SCH (06:19)
[2018-05-29 07:00] LABS: HEMATOCRIT 35.6 % (42.0-52.0); HEMOGLOBIN 11.5 g/dl (13.5-17.5); MEAN CORPUSCULAR HEMOGLOBIN 31.6 pg (27.0-33.0); MEAN CORPUSCULAR HGB CONC 32.3 g/dl (32.0-36.5); MEAN CORPUSCULAR VOLUME 97.8 fl (80.0-96.0); PLATELET COUNT, AUTOMATED 174 10^3/uL (150-450); RED BLOOD COUNT 3.64 10^6/uL (4.30-6.10); WHITE BLOOD COUNT 13.1 10^3/uL (4.0-10.0)
[2018-05-29 07:33] LABS: ALBUMIN 2.4 GM/DL (3.2-5.2); BILIRUBIN,DIRECT 0.2 MG/DL (0.0-0.2); BILIRUBIN,TOTAL 0.8 MG/DL (0.2-1.0); CALCIUM LEVEL 7.8 MG/DL (8.8-10.2); CREATININE FOR GFR 1.25 MG/DL (0.70-1.30); GLOMERULAR FILTRATION RATE 59.9 (>42); POTASSIUM SERUM 4.3 MEQ/L (3.5-5.1); TOTAL PROTEIN 5.8 GM/DL (6.4-8.2)
[2018-05-29 08:26] VITALS: BP 135/73
[2018-05-29] MEDS: ATORVASTATIN 20 MG TAB PO SCH (08:26)
[2018-05-29] MEDS: ATENOLOL 25 MG TAB PO SCH (08:26)
[2018-05-29] MEDS: ALLOPURINOL 100 MG TAB PO SCH (08:26)
[2018-05-29] MEDS: ENALAPRIL MALEATE 10 MG TAB PO SCH (08:26)
[2018-05-29] MEDS: LACTULOSE 20 GM/30 ML SYRUP UD PO SCH (08:27)
[2018-05-29] MEDS: HumaLOG INSULIN (NovoLOG) PER UNIT SC SCH (08:27)
--- NOTE | 2018-05-29 09:20 | DS.PDOC ---
Discharge Summary General Date of Admission May 27, 2018 at 18:08 Date of Discharge May 29, 2018 Discharge Summary PROCEDURES PERFORMED DURING STAY: [None]. ADMITTING DIAGNOSES: Fecal retention Leukocytosis Diabetes Mellitus II CKD III Gout Hyperlipidemia CVD DISCHARGE DIAGNOSES: Fecal retention Diabetes Mellitus II CKD III Gout Hyperlipidemia CVD COMPLICATIONS/CHIEF COMPLAINT: Fecal Retention,Leukocytosis. HISTORY OF PRESENT ILLNESS: 77-year-old male with past medical history of hypertension, diabetes and chronic kidney disease (CKD) III, who presents to the emergency room secondary to fecal retention. He says he has not had a bowel movement in approximately 4 days so he came to the emergency room (ER) for evaluation. H denied recent URI, fevers, chills, abdominal pain, nausea, vomiting, or sick contacts. HOSPITAL COURSE: Patient was admitted and given lactulose to relieve constipation. He had 4 bowel movements the following day. Patient's white count was found to be elevated at 21.6 upon admission. He had no fevers or signs of infection. Blood and urine cultures were clean. White count declining towards normal upon discharge. Patient was cleared by PT/OT before discharge. DISCHARGE MEDICATIONS: Please see below. ALLERGIES: Please see below. PHYSICAL EXAMINATION ON DISCHARGE: VITAL SIGNS: Please see below. GENERAL: Patient seen sitting up in bed. Pleasant, cooperative, no acute distress. HEENT: Atraumatic, normocephalic NECK: Supple CARDIOVASCULAR EXAMINATION: RRR, normal S1, S2, no murmurs, rubs, or gallops RESPIRATORY EXAMINATION: Clear to auscultation, no wheezes, rales, or rhonchi ABDOMINAL EXAMINATION: Soft, nontender, normoactive bowel sounds EXTREMITIES: No cyanosis or edema SKIN: No rashes NEUROLOGICAL EXAMINATION: Alert and oriented, no abnormal speech PSYCHIATRIC EXAMINATION: Mood normal LABORATORY DATA: Please see below. IMAGING: Chest x-ray did not show any consolidation and the abdominal CT did not show any acute pathology. Abdominal x-ray just showed some fecal retention but no obstruction. PROGNOSIS: Good ACTIVITY: [As tolerated]. DIET: As tolerated DISCHARGE PLAN AND INSTRUCTION: 1. Please follow up with primary care provider in 7 days. 2. Call provider or return if symptoms worsen ITEMS TO FOLLOWUP ON ON OUTPATIENT: 1. Fecal retention with leukocytosis DISCHARGE CONDITION: [Stable]. TIME SPENT ON DISCHARGE: Greater than 15 minutes. Vital Signs/I&Os Vital Signs Date Time Temp Pulse Resp B/P (MAP) Pulse Ox O2 Delivery O2 Flow Rate FiO2 05/29/18 05:47 98.5 56 18 135/73 (93) 96 Room Air I&O- Last 24 Hours up to 6 AM 05/29/18 06:00 Intake Total 1200 ml Balance 1200 ml Laboratory Data Labs 24H Laboratory Tests 2 05/28/18 11:52: Bedside Glucose (Misc Panel) 125H 05/28/18 17:33: Bedside Glucose (Misc Panel) 119H 05/28/18 21:03: Bedside Glucose (Misc Panel) 141H 05/29/18 06:46: Nucleated Red Blood Cells % (auto) 0.0 CBC/BMP Laboratory Tests 05/29/18 06:46 Red Blood Count 3.64 L, Mean Corpuscular Volume 97.8 H, Mean Corpuscular Hemoglobin 31.6, Mean Corpuscular Hemoglobin Concent 32.3, Red Cell Distribution Width 13.2 FSBS Laboratory Tests Test 05/28/18 11:52 05/28/18 17:33 05/28/18 21:03 Range/Units Bedside Glucose (Misc Panel) 125 119 141 83-110 MG/DL Microbiology Microbiology 05/27/18 Blood Culture - Preliminary, Resulted No growth after 24 hours . All specim... 05/27/18 Blood Culture - Preliminary, Resulted No growth after 24 hours . All specim... Discharge Medications Scheduled Allopurinol (Allopurinol) 100 Mg Tab, 100 MG PO DAILY, (Reported) Atenolol (Atenolol) 25 Mg Tab, 25 MG PO DAILY, (Reported) Atorvastatin Calcium (Atorvastatin Calcium) 20 Mg Tab, 20 MG PO DAILY, (Reported) Docusate Sod/Senna (Senokot S 8.6-50 mg) 1 Tab Tab, 1 TAB PO BID Enalapril Maleate (Enalapril Maleate) 20 Mg Tab, 20 MG PO BID, (Reported) Glipizide (Glipizide ER) 10 Mg Tab, 10 MG PO DAILY, (Reported) Metformin Hydrochloride (Metformin HCl) 500 Mg Tab, 500 MG PO BID, (Reported) Polyethylene Glycol (Miralax) 1 Pow Pow, 17 GRAM PO DAILY for constipation dissolve in water Scheduled PRN Ondansetron HCl (Ondansetron HCl) 4 Mg Tab, 4 MG PO Q4H PRN for NAUSEA OR VOMITING, (Reported) Allergies Coded Allergies: Sulfa Antibiotics (Verified Allergy, Unknown, hives, 12/09/16) GME ATTESTATION GME ATTESTATION My faculty preceptor for this patient encounter was physically present during the encounter and was fully available. All aspects of the patient interview, examination, medical decision making process, and medical care plan development were reviewed and approved by the faculty preceptor. The faculty preceptor is aware and concurs with the plan as stated in the body of this note and will attest to such by his/her cosignature. ATTENDING NOTE I have both independently examined this patient as well as reviewed the note I have discussed in detail the findings and plan of treatment as documented in the note. I will continue to follow the patient and offer further guidance to the patients care as necessary during this hospital stay. LIANNA Valle MD S-III May 29, 2018 07:47 TAMIKA BELTRÁN DO May 31, 2018 13:24 ELVIS DAMON MD Jun 01, 2018 10:55
[2018-05-29] MEDS ORDERED: LACT10SO3 PO (10:21)
[2018-05-29] MEDS ORDERED: SENO8.6T10 PO (11:20)
[2018-05-29] MEDS ORDERED: MIRA3350 PO (11:21)
[2018-06-30] MEDS ORDERED: NABU-126 (11:32)
[2018-06-30] MEDS ORDERED: TRAD5TAB (11:32)
[2018-06-30] MEDS ORDERED: LACT10SO29 (11:32)
[2018-06-30] MEDS ORDERED: PROAAER10 INH (11:55)
[2018-06-30] MEDS ORDERED: AVEL1TAB3 PO (11:55)
== END 2018-05-29 11:50 | disposition home or self-care (01) ==
LOC: M ED 11:41 → M ED INP 18:08 → M MS4PR 22:17
PROVIDERS: ADMIT Internal Medicine; ATTEND Internal Medicine
DX: K59.00 Constipation, unspecified (principal); D72.829 Elevated white blood cell count, unspecified; I12.9 Hypertensive chronic kidney disease with stage 1 through stage 4 chronic kidney disease, or unspecified chronic kidney disease; N18.3 Chronic kidney disease, stage 3 (moderate); E11.9 Type 2 diabetes mellitus without complications; M10.9 Gout, unspecified; E78.5 Hyperlipidemia, unspecified; Z79.899 Other long term (current) drug therapy; Z88.2 Allergy status to sulfonamides
CPT/HCPCS: 36415; 51701; 74021; 74177; 80048; 80076; 81001; 82150; 82550; 82553; 83605; 83690; 84443; 84484; 85025; 85027; 87040; 93005; 96372; 97161; 97165; 99285; G0378; G8978; G8979; G8980; G8987; G8988; G8989; J2543; Q9967

== ENCOUNTER → 2018-06-22 | Outpatient (CLI) | payer MEDICARE, MEDICAID ==
[2018-06-22 08:38] LABS: BASO # 0.1 10^3/uL (0.0-0.2); BASO % 0.4 % (0.0-1.0); EOS # 0.5 10^3/uL (0.0-0.50); EOS % 3.9 % (0.0-3.0); HEMOGLOBIN 13.7 g/dl (13.5-17.5); IMMATURE GRANULOCYTE % 1.2 % (0-3.0); LYMPH # 1.6 10^3/uL (1.5-4.5); LYMPH % 14.3 % (24.0-44.0); MEAN CORPUSCULAR HEMOGLOBIN 31.6 pg (27.0-33.0); MEAN CORPUSCULAR HGB CONC 32.6 g/dl (32.0-36.5); MEAN CORPUSCULAR VOLUME 96.8 fl (80.0-96.0); MONO # 1.2 10^3/uL (0.0-0.8); NEUTROPHILS % 70.2 % (36.0-66.0); PLATELET COUNT, AUTOMATED 195 10^3/uL (150-450); RED BLOOD COUNT 4.34 10^6/uL (4.30-6.10); RED CELL DISTRIBUTION WIDTH 13.4 % (11.5-14.5); WHITE BLOOD COUNT 11.5 10^3/uL (4.0-10.0)
[2018-06-22 08:52] LABS: ANION GAP 8 MEQ/L (8-16); BLOOD UREA NITROGEN 25 MG/DL (7-18); CARBON DIOXIDE LEVEL 29 MEQ/L (21-32); CHLORIDE LEVEL 106 MEQ/L (98-107); CREATININE FOR GFR 1.41 MG/DL (0.70-1.30); GLOMERULAR FILTRATION RATE 52.2 (>42); GLUCOSE, FASTING 170 MG/DL (70-100); POTASSIUM SERUM 4.8 MEQ/L (3.5-5.1); SODIUM LEVEL 143 MEQ/L (136-145)
[2018-06-22 11:02] LABS: ESTIMATED AVERAGE GLUCOSE 151 MG/DL (60-110); HEMOGLOBIN A1c 6.9 %
== END ==
LOC: M LAB 07:40
DX: I11.9 Hypertensive heart disease without heart failure (principal); E11.9 Type 2 diabetes mellitus without complications
CPT/HCPCS: 83036

== ENCOUNTER 2018-06-30 11:21 | Emergency (ER) | payer MEDICARE, MEDICAID | END 2018-06-30 12:05 | disposition home or self-care (01) | LOC: M ED 11:21 | DX: J20.9 Acute bronchitis, unspecified (principal); I51.9 Heart disease, unspecified; E11.9 Type 2 diabetes mellitus without complications; I10 Essential (primary) hypertension; E78.5 Hyperlipidemia, unspecified; K21.9 Gastro-esophageal reflux disease without esophagitis; Z79.84 Long term (current) use of oral hypoglycemic drugs; Z79.899 Other long term (current) drug therapy; Z88.2 Allergy status to sulfonamides | CPT/HCPCS: 99282 ==

== ENCOUNTER 2018-07-03 17:13 | Emergency (ER) | payer MEDICARE, MEDICAID ==
[2018-07-03 17:54] LABS: BASO # 0.1 10^3/uL (0.0-0.2); BASO % 0.5 % (0.0-1.0); EOS # 0.5 10^3/uL (0.0-0.50); EOS % 4.1 % (0.0-3.0); HEMATOCRIT 38.4 % (42.0-52.0); HEMOGLOBIN 12.5 g/dl (13.5-17.5); IMMATURE GRANULOCYTE % 2.2 % (0-3.0); LYMPH # 1.4 10^3/uL (1.5-4.5); MEAN CORPUSCULAR HEMOGLOBIN 31.3 pg (27.0-33.0); MEAN CORPUSCULAR HGB CONC 32.6 g/dl (32.0-36.5); MEAN CORPUSCULAR VOLUME 96.2 fl (80.0-96.0); MONO % 8.8 % (0.0-5.0); NEUTROPHILS # 8.2 10^3/uL (1.8-7.7); NEUTROPHILS % 72.4 % (36.0-66.0); PLATELET COUNT, AUTOMATED 175 10^3/uL (150-450); RED BLOOD COUNT 3.99 10^6/uL (4.30-6.10); RED CELL DISTRIBUTION WIDTH 13.9 % (11.5-14.5); WHITE BLOOD COUNT 11.3 10^3/uL (4.0-10.0)
[2018-07-03 18:13] LABS: INR 1.01; PROTHROMBIN TIME 13.4 SECONDS (12.1-14.4)
[2018-07-03 18:17] LABS: ALBUMIN 3.2 GM/DL (3.2-5.2); ALBUMIN/GLOBULIN RATIO 1.14 (1.00-1.93); ALKALINE PHOSPHATASE 89 U/L (45-117); ALT/SGPT 35 U/L (12-78); ANION GAP 11 MEQ/L (8-16); AST/SGOT 25 U/L (7-37); BILIRUBIN,TOTAL 0.7 MG/DL (0.2-1.0); BLOOD UREA NITROGEN 20 MG/DL (7-18); CALCIUM LEVEL 8.1 MG/DL (8.8-10.2); CARBON DIOXIDE LEVEL 21 MEQ/L (21-32); CHLORIDE LEVEL 113 MEQ/L (98-107); CPK CREATINE PHOSPHOKINASE 203 U/L (39-308); GLOMERULAR FILTRATION RATE 57.3 (>42); GLUCOSE, FASTING 152 MG/DL (70-100); LIPASE 365 U/L (73-393); POTASSIUM SERUM 4.2 MEQ/L (3.5-5.1); SODIUM LEVEL 145 MEQ/L (136-145); TROPONIN I < 0.02 NG/ML (< 0.10)
[2018-07-03 22:52] LABS: CPK CREATINE PHOSPHOKINASE 163 U/L (39-308); TROPONIN I < 0.02 NG/ML (< 0.10)
== END 2018-07-03 23:16 | disposition home or self-care (01) ==
LOC: M ED 23:16
DX: R07.89 Other chest pain (principal); Z86.73 Personal history of transient ischemic attack (TIA), and cerebral infarction without residual deficits; I10 Essential (primary) hypertension; I25.2 Old myocardial infarction
CPT/HCPCS: 71045

== ENCOUNTER 2018-09-24 17:15 | Emergency (ER) | payer MEDICARE, MEDICAID ==
[~2018-09-24] VITALS: Ht 162.6 cm; Wt 81.8 kg
[~2018-09-24 17:15] MED LIST changes: +AVEL1TAB3 PO; +GLIP10TA18 PO; -GLIP1TAB51 PO; +LACT10SO29; +LACT10SO3 PO; +MIRA3350 PO; +NABU-126; +ONDA4TAB5 PO; +PROAAER10 INH; +SENO8.6T10 PO; +TRAD5TAB
[2018-09-24] MEDS ORDERED: FLUTICASONE (17:21)
[2018-09-24] MEDS ORDERED: NABU-126 (17:21)
[2018-09-24] MEDS ORDERED: NS 1,000 ML IV ONE (19:30)
[2018-09-24] MEDS ORDERED: ONDANSETRON 4MG/2ML VIAL (J2405) IV ONE (19:30)
[2018-09-24 20:16] LABS: BASO % 0.2 % (0.0-1.0); EOS # 0.2 10^3/uL (0.0-0.50); EOS % 1.5 % (0.0-3.0); HEMATOCRIT 45.1 % (42.0-52.0); HEMOGLOBIN 14.5 g/dl (13.5-17.5); LYMPH # 0.9 10^3/uL (1.5-4.5); LYMPH % 6.8 % (24.0-44.0); MEAN CORPUSCULAR HEMOGLOBIN 31.5 pg (27.0-33.0); MEAN CORPUSCULAR HGB CONC 32.2 g/dl (32.0-36.5); MEAN CORPUSCULAR VOLUME 97.8 fl (80.0-96.0); MONO # 1.6 10^3/uL (0.0-0.8); MONO % 12.4 % (0.0-5.0); NEUTROPHILS # 9.8 10^3/uL (1.8-7.7); NEUTROPHILS % 77.8 % (36.0-66.0); PLATELET COUNT, AUTOMATED 172 10^3/uL (150-450); RED BLOOD COUNT 4.61 10^6/uL (4.30-6.10); WHITE BLOOD COUNT 12.6 10^3/uL (4.0-10.0)
[2018-09-24 20:54] LABS: ALBUMIN 3.5 GM/DL (3.2-5.2); ALT/SGPT 26 U/L (12-78); BILIRUBIN,DIRECT 0.2 MG/DL (0.0-0.2); BILIRUBIN,TOTAL 1.1 MG/DL (0.2-1.0); BLOOD UREA NITROGEN 41 MG/DL (7-18); CALCIUM LEVEL 7.2 MG/DL (8.8-10.2); CARBON DIOXIDE LEVEL 22 MEQ/L (21-32); CHLORIDE LEVEL 110 MEQ/L (98-107); CPK CREATINE PHOSPHOKINASE 162 U/L (39-308); CREATININE FOR GFR 1.67 MG/DL (0.70-1.30); GLOMERULAR FILTRATION RATE 42.8 (>42); GLUCOSE, FASTING 135 MG/DL (70-100); LIPASE 278 U/L (73-393); MB/CK RELATIVE INDEX 3.33 (< OR =4); POTASSIUM SERUM 4.1 MEQ/L (3.5-5.1); SODIUM LEVEL 142 MEQ/L (136-145); TOTAL PROTEIN 6.3 GM/DL (6.4-8.2); TROPONIN I < 0.02 NG/ML (< 0.10)
--- NOTE | 2018-09-24 22:17 | REPVR ---
EXAM: CT Abdomen and Pelvis Without Contrast EXAM DATE/TIME: 09/24/2018 9:35 PM CLINICAL HISTORY: 78 years old, male; Pain; Abdominal pain; Generalized; Additional info: Abd pain TECHNIQUE: Axial computed tomography images of the abdomen and pelvis without contrast. All CT scans at this facility use at least one of these dose optimization techniques: automated exposure control; mA and/or kV adjustment per patient size (includes targeted exams where dose is matched to clinical indication); or iterative reconstruction. Coronal and sagittal reformatted images were created and reviewed. COMPARISON: CT ABD/PEL W/IV CONTRAST ONLY 05/27/2018 2:28 PM FINDINGS: Limitations: This examination is slightly limited for the evaluation of abdominal organs given lack of IV and oral contrast. Lower thorax: Minimal dependent changes within the lung bases, likely atelectasis. Coronary atherosclerosis. ABDOMEN: Liver: Unremarkable. No mass. Gallbladder and bile ducts: Normal. No calcified stones. No ductal dilation. Pancreas: Unremarkable. No ductal dilation. Spleen: Unremarkable. No splenomegaly. Adrenals: Normal. No mass. Kidneys and ureters: There are 3 nonobstructing stones within the left kidney. The largest left renal stone measures 4 mm within the lower pole. The right kidney is unremarkable. No stones are seen within either ureter or the urinary bladder. No hydronephrosis. Stomach and bowel: Mild colonic diverticulosis. No diverticulitis. Unremarkable stomach and small bowel. Appendix: No evidence of appendicitis. PELVIS: Bladder: Unremarkable as visualized. Reproductive: Unremarkable as visualized. ABDOMEN and PELVIS: Intraperitoneal space: No free air. No significant fluid collection. Bones/joints: Degenerative spondylosis throughout the lower thoracic and lumbar spine. No acute fracture or suspicious bone lesion. Soft tissues: Small bilateral inguinal hernias containing fat. Vasculature: Mild atherosclerosis of the abdominal aorta. No aneurysm. Lymph nodes: No enlarged lymph nodes. IMPRESSION: 1. Left nephrolithiasis. 2. No acute abnormality. Electronically signed by: Roderick Oswald On 09/24/2018 22:16:55 PM
[2018-09-25 00:38] VITALS: BP 140/75
== END 2018-09-25 00:40 | disposition home or self-care (01) ==
LOC: M ED 17:15
DX: R19.7 Diarrhea, unspecified (principal); E11.9 Type 2 diabetes mellitus without complications; I25.2 Old myocardial infarction; I10 Essential (primary) hypertension; E78.5 Hyperlipidemia, unspecified; K21.9 Gastro-esophageal reflux disease without esophagitis; R51 Headache; M10.9 Gout, unspecified; Z86.73 Personal history of transient ischemic attack (TIA), and cerebral infarction without residual deficits; Z87.442 Personal history of urinary calculi; Z88.2 Allergy status to sulfonamides; Z87.891 Personal history of nicotine dependence; Z82.49 Family history of ischemic heart disease and other diseases of the circulatory system; Z84.1 Family history of disorders of kidney and ureter; Z79.899 Other long term (current) drug therapy; Z79.84 Long term (current) use of oral hypoglycemic drugs
CPT/HCPCS: 74176; 80048; 80076; 81001; 82550; 82553; 83690; 84484; 85025; 96374; 99284; J2405

== ENCOUNTER → 2018-09-25 | Outpatient (REF) | payer MEDICARE, MEDICAID ==
[~2018-09-25] MED LIST changes: +FLUTICASONE
== END ==
LOC: M LAB REF 10:57
PROVIDERS: ATTEND Physician Assistant
DX: R19.7 Diarrhea, unspecified (principal)

== ENCOUNTER → 2018-10-02 | Outpatient (CLI) | payer MEDICARE, MEDICAID ==
[2018-10-02 12:22] LABS: BASO # 0.1 10^3/uL (0.0-0.2); BASO % 0.8 % (0.0-1.0); EOS # 0.3 10^3/uL (0.0-0.50); EOS % 2.9 % (0.0-3.0); HEMATOCRIT 42.7 % (42.0-52.0); HEMOGLOBIN 13.3 g/dl (13.5-17.5); LYMPH # 1.5 10^3/uL (1.5-4.5); LYMPH % 12.8 % (24.0-44.0); MEAN CORPUSCULAR HEMOGLOBIN 30.9 pg (27.0-33.0); MEAN CORPUSCULAR HGB CONC 31.1 g/dl (32.0-36.5); MEAN CORPUSCULAR VOLUME 99.3 fl (80.0-96.0); MONO % 9.1 % (0.0-5.0); NEUTROPHILS # 7.9 10^3/uL (1.8-7.7); NEUTROPHILS % 69.9 % (36.0-66.0); PLATELET COUNT, AUTOMATED 198 10^3/uL (150-450); WHITE BLOOD COUNT 11.3 10^3/uL (4.0-10.0)
[2018-10-02 12:43] LABS: ALBUMIN 3.7 GM/DL (3.2-5.2); BILIRUBIN,TOTAL 0.6 MG/DL (0.2-1.0); CALCIUM LEVEL 8.6 MG/DL (8.8-10.2); CREATININE FOR GFR 1.66 MG/DL (0.70-1.30); GLOMERULAR FILTRATION RATE 43.1 (>42); POTASSIUM SERUM 5.2 MEQ/L (3.5-5.1); TOTAL PROTEIN 6.1 GM/DL (6.4-8.2)
[2018-10-02 15:03] LABS: HEMOGLOBIN A1c 6.4 %
== END ==
LOC: M WUC 11:00
PROVIDERS: ATTEND Nurse Practitioner Family
DX: E11.9 Type 2 diabetes mellitus without complications (principal)

== ENCOUNTER 2019-01-13 06:03 | Emergency (ER) | payer MEDICARE, MEDICAID ==
[~2019-01-13] VITALS: Ht 162.6 cm; Wt 77.3 kg
[~2019-01-13 06:03] MED LIST changes: +ASPI-1 PO; -ASPI325T PO
[2019-01-13] MEDS ORDERED: NS 500 ML IV ONE (06:30)
[2019-01-13 07:09] LABS: BASO # 0.1 10^3/uL (0.0-0.2); BASO % 0.7 % (0.0-1.0); EOS # 0.3 10^3/uL (0.0-0.50); EOS % 3.7 % (0.0-3.0); HEMOGLOBIN 12.8 g/dl (13.5-17.5); LYMPH # 1.4 10^3/uL (1.5-4.5); LYMPH % 14.8 % (24.0-44.0); MEAN CORPUSCULAR HEMOGLOBIN 31.2 pg (27.0-33.0); MEAN CORPUSCULAR HGB CONC 32.8 g/dl (32.0-36.5); MEAN CORPUSCULAR VOLUME 95.1 fl (80.0-96.0); MONO # 0.9 10^3/uL (0.0-0.8); NEUTROPHILS # 6.3 10^3/uL (1.8-7.7); NEUTROPHILS % 69.3 % (36.0-66.0); PLATELET COUNT, AUTOMATED 176 10^3/uL (150-450); WHITE BLOOD COUNT 9.1 10^3/uL (4.0-10.0)
[2019-01-13 07:35] LABS: ALBUMIN 3.5 GM/DL (3.2-5.2); BILIRUBIN,DIRECT 0.2 MG/DL (0.0-0.2); BILIRUBIN,TOTAL 1.2 MG/DL (0.2-1.0); CALCIUM LEVEL 8.6 MG/DL (8.8-10.2); CREATININE FOR GFR 1.69 MG/DL (0.70-1.30); GLOMERULAR FILTRATION RATE 42.2 (>42); POTASSIUM SERUM 4.4 MEQ/L (3.5-5.1); TOTAL PROTEIN 6.1 GM/DL (6.4-8.2)
--- NOTE | 2019-01-13 07:35 | REPVR ---
EXAM: CT Abdomen and Pelvis Without Contrast EXAM DATE/TIME: 01/13/2019 6:37 AM CLINICAL HISTORY: 78 years old, male; Abdominal pain; Flank; Right; Additional info: Right flank pain/renal colic TECHNIQUE: Imaging protocol: Axial computed tomography images of the abdomen and pelvis without contrast. Coronal and sagittal reformatted images were created and reviewed. Radiation optimization: All CT scans at this facility use at least one of these dose optimization techniques: automated exposure control; mA and/or kV adjustment per patient size (includes targeted exams where dose is matched to clinical indication); or iterative reconstruction. COMPARISON: CT ABD PELVIS W/O CONTRAST 09/24/2018 9:22 PM FINDINGS: Lungs: There is minimal, nonspecific dependent density in the lung bases. Liver: There are no focal liver lesions present. Gallbladder and bile ducts: The gallbladder is normal with no stones or biliary ductal dilation. Pancreas: There is diffuse, benign fatty infiltration of the pancreas. Spleen: The spleen is normal. Adrenals: The adrenal glands are normal. Kidneys and ureters: There are small nonobstructing stones in the left kidney upper pole and lower pole, unchanged. A punctate stone previously seen in the right renal pelvis is no longer identified. There are no ureteral stones or hydronephrosis. There is mild, stable, bilateral perinephric stranding. Stomach and bowel: Mild diverticulosis is present in the distal colon. There is no dilation or thickening of the colon. The small bowel appears unremarkable. Appendix: A normal appendix is identified. Intraperitoneal space: There is no evidence of free intraperitoneal or pelvic fluid. There is no free intraperitoneal air. Vasculature: The vasculature demonstrates diffuse moderate atherosclerotic calcification. Lymph nodes: No lymphadenopathy is seen. Bladder: The bladder is unremarkable. No stones identified. Reproductive: The prostate gland and seminal vesicles are normal. Bones/joints: Degenerative endplate changes are seen at multiple levels in the visualized spine. There are pars defects bilaterally at L5. Soft tissues: There are small, bilateral fat containing inguinal hernias. There is asymmetric fatty atrophy of the right gluteus medius and gluteus minimus muscles. IMPRESSION: 1. No ureteral stones or hydronephrosis identified. 2. A small stone seen in the right renal pelvis on the prior exam from September, is no longer identified, and could have passed recently. 3. Mild diverticulosis without evidence of acute diverticulitis. 4. Normal appearance of the appendix. Electronically signed by: Lida Sihrley On 01/13/2019 07:35:30 AM
[2019-01-13] MEDS ORDERED: ATENOLOL 25 MG TAB PO ONE (08:00)
[2019-01-13] MEDS ORDERED: ENALAPRIL MALEATE 10 MG TAB PO ONE (08:00)
[2019-01-13 08:41] VITALS: BP 197/85
[2019-01-13 09:22] VITALS: BP 182/98
== END 2019-01-13 09:53 | disposition home or self-care (01) ==
LOC: M ED 06:03
DX: R91.1 Solitary pulmonary nodule (principal); K57.90 Diverticulosis of intestine, part unspecified, without perforation or abscess without bleeding; Z87.442 Personal history of urinary calculi; Z79.52 Long term (current) use of systemic steroids; Z79.84 Long term (current) use of oral hypoglycemic drugs; Z79.899 Other long term (current) drug therapy; Z88.2 Allergy status to sulfonamides

== ENCOUNTER → 2019-03-07 | Outpatient (REF) | payer MEDICARE, MEDICAID ==
[~2019-03-07] MED LIST changes: +FLUT15.820; +NABU-126 PO; +NAPR-837 PO; -OMEP40CA2 PO; +OMEP40CA97 PO; +ONDA-83 PO; -ONDA4TAB5 PO; +ROBA750T4 PO
[2019-03-07 12:50] LABS: BASO # 0.1 10^3/uL (0.0-0.2); BASO % 0.8 % (0.0-1.0); EOS # 0.4 10^3/uL (0.0-0.50); EOS % 3.7 % (0.0-3.0); HEMATOCRIT 43.9 % (42.0-52.0); LYMPH # 1.7 10^3/uL (1.5-4.5); MEAN CORPUSCULAR HEMOGLOBIN 32.3 pg (27.0-33.0); MEAN CORPUSCULAR HGB CONC 31.9 g/dl (32.0-36.5); MEAN CORPUSCULAR VOLUME 101.4 fl (80.0-96.0); MONO # 1.3 10^3/uL (0.0-0.8); MONO % 12.8 % (0.0-5.0); NEUTROPHILS # 6.4 10^3/uL (1.8-7.7); NEUTROPHILS % 63.8 % (36.0-66.0); PLATELET COUNT, AUTOMATED 177 10^3/uL (150-450); RED BLOOD COUNT 4.33 10^6/uL (4.30-6.10)
[2019-03-07 13:01] LABS: ALBUMIN 3.7 GM/DL (3.2-5.2); BILIRUBIN,TOTAL 0.8 MG/DL (0.2-1.0); CHOLESTEROL RISK RATIO 5.294 (<5); CREATININE FOR GFR 1.37 MG/DL (0.70-1.30); GLOMERULAR FILTRATION RATE 53.8 (>42); POTASSIUM SERUM 4.6 MEQ/L (3.5-5.1); TOTAL PROTEIN 6.5 GM/DL (6.4-8.2)
[2019-03-07 14:43] LABS: HEMOGLOBIN A1c 7.3 %
== END ==
LOC: M LABDRAWP 10:09
PROVIDERS: ATTEND Nurse Practitioner Family
DX: I11.9 Hypertensive heart disease without heart failure (principal); E11.9 Type 2 diabetes mellitus without complications

== ENCOUNTER 2019-04-25 03:42 | Emergency (ER) | payer MEDICARE, MEDICAID ==
[~2019-04-25 03:42] MED LIST changes: -FLUT15.820; -NABU-126 PO; -NAPR-837 PO; -ONDA-83 PO; +ONDA4TAB5 PO; -ROBA750T4 PO
[2019-04-25] MEDS ORDERED: METF500T13 PO (03:59)
[2019-04-25] MEDS ORDERED: NABU-126 PO (03:59)
[2019-04-25] MEDS ORDERED: FLUT15.820 (03:59)
[2019-04-25] MEDS ORDERED: TRAD5TAB PO (03:59)
[2019-04-25] MEDS ORDERED: ACETAMINOPHEN TAB 650MG DOSE (2X325MG) PO ONE (04:15)
--- NOTE | 2019-04-25 04:34 | REPVR ---
PROCEDURE INFORMATION: Exam: CT Head without contrast Exam date and time: 04/25/2019 4:18 AM Clinical history: 78 years old, male; Dizziness; Additional info: CVA - nursing interventions must not delay CT TECHNIQUE: Imaging protocol: Computed tomography of the head without contrast. Radiation optimization: All CT scans at this facility use at least one of these dose optimization techniques: automated exposure control; mA and/or kV adjustment per patient size (includes targeted exams where dose is matched to clinical indication); or iterative reconstruction. Other technique: STROKE PROTOCOL was implemented. COMPARISON: CT Head without contrast 10/02/2018 7:41 PM FINDINGS: There is no acute intracranial hemorrhage, extra axial fluid collection or hematoma, nor midline shift or herniation. There is global parenchymal volume loss, similar to the prior exam. There is prominence of the ventricles however commensurate with degree of parenchymal volume loss. No evidence of pneumocephalus. There is intracranial atherosclerosis. A 4.4 mm hypodense lesion is again noted within the peripheral right cerebellar hemisphere, consistent with an old infarct. Mild microvascular ischemic changes suspected, similar to the prior exam. No CT findings are seen at the current time to suggest changes of acute territorial vascular infarction. Note is made however, that CT changes, may lag clinical findings in acute CVA. If clinically indicated, consideration could be given to MRI with diffusion weighted imaging, due to its greater sensitivity, for detection of acute ischemic change. Intracranial calcifications are incidentally noted. No pericranial scalp hematoma is seen. No acute cranial vault fracture is seen. Incomplete posterior arch of C1 incidentally noted. Degenerative changes of the temporomandibular joints suspected. No fluid is seen within the visualized paranasal sinuses . A few opacified right mastoid air cells are again noted. No fluid or opacification seen within the middle ear cavities. Incompletely evaluated soft tissue thickening along the upper nuchal ligament again noted, possibly related to scarring. IMPRESSION: No evidence of acute territorial major vessel infarct, mass effect, or hemorrhage. Intracranial atherosclerosis and stable small vessel ischemic changes again noted as discussed above. Parenchymal volume loss with prominence of the ventricles unchanged. Other incidental findings discussed above. ASSESSMENT: ASPECTS ([place] Stroke Program Early CT Score) is 10. Electronically signed by: José Miguel Darby On 04/25/2019 04:33:28 AM
[2019-04-25 05:04] LABS: BASO # 0.1 10^3/uL (0.0-0.2); BASO % 0.5 % (0.0-1.0); EOS # 0.3 10^3/uL (0.0-0.5); EOS % 2.1 % (0.0-3.0); HEMOGLOBIN 13.1 g/dl (13.5-17.5); LYMPH # 0.9 10^3/uL (1.5-5.0); LYMPH % 7.9 % (24.0-44.0); MEAN CORPUSCULAR HEMOGLOBIN 32.1 pg (27.0-33.0); MEAN CORPUSCULAR HGB CONC 32.8 g/dl (32.0-36.5); MONO # 1.3 10^3/uL (0.0-0.8); MONO % 10.5 % (0.0-5.0); NEUTROPHILS # 9.3 10^3/uL (1.5-8.5); NEUTROPHILS % 77.7 % (36.0-66.0); PLATELET COUNT, AUTOMATED 158 10^3/uL (150-450); RED BLOOD COUNT 4.08 10^6/uL (4.30-6.10); WHITE BLOOD COUNT 11.9 10^3/uL (4.0-10.0)
[2019-04-25 05:16] LABS: INR 1.07; PROTHROMBIN TIME 13.6 SECONDS (11.8-14.0)
[2019-04-25 05:17] LABS: PARTIAL THROMBOPLASTIN TIME 29.9 SECONDS (25.0-38.4)
[2019-04-25 05:19] LABS: BLOOD UREA NITROGEN 22 MG/DL (7-18); CALCIUM LEVEL 8.9 MG/DL (8.8-10.2); CARBON DIOXIDE LEVEL 27 MEQ/L (21-32); CHLORIDE LEVEL 108 MEQ/L (98-107); CK-MB VALUE MASS 3.9 NG/ML (<3.6); CPK CREATINE PHOSPHOKINASE 108 U/L (39-308); CREATININE FOR GFR 1.25 MG/DL (0.70-1.30); GLOMERULAR FILTRATION RATE 59.8 (>42); GLUCOSE, FASTING 120 MG/DL (70-100); MB/CK RELATIVE INDEX 3.61 (< OR =4); POTASSIUM SERUM 4.2 MEQ/L (3.5-5.1); SODIUM LEVEL 141 MEQ/L (136-145); TROPONIN I < 0.02 NG/ML (< 0.10)
--- NOTE | 2019-04-25 06:42 | REPVR ---
PROCEDURE INFORMATION: Exam: MR Head Without Contrast Exam date and time: 04/25/2019 5:40 AM Clinical history: 78 years old, male; Patient HX: PT states HX pinched nerve in neck, neck pain and ue weakness on lt side only for 2 days. Nki, CT on pacs; Additional info: CVA TECHNIQUE: Imaging protocol: MR of the head without contrast. COMPARISON: MRI-Brain without Contrast 09/08/2013 4:27 PM FINDINGS: Brain: Mild generalized parenchymal atrophy. Scattered foci of T2/flair signal prolongation involving periventricular and subcortical white matter bilaterally likely represent sequela of microvascular ischemic disease. Ventricles: Normal. No ventriculomegaly. Bones/joints: Unremarkable. Soft tissues: Unremarkable. Sinuses: Normal as visualized. No acute sinusitis. Mastoid air cells: Normal as visualized. No mastoid effusion. Orbits: Unremarkable. IMPRESSION: No acute intracranial pathology. Electronically signed by: Guzman Vásquez On 04/25/2019 06:41:23 AM
--- NOTE | 2019-04-25 06:46 | REPVR ---
PROCEDURE INFORMATION: Exam: MR Angiogram Head Without Contrast, Arteries Exam date and time: 04/25/2019 5:40 AM Clinical history: 78 years old, male; Patient HX: PT states HX pinched nerve in neck, neck pain and ue weakness on lt side only for 2 days. Nki, CT on pacs; Additional info: CVA TECHNIQUE: Imaging protocol: MR angiogram head without contrast. Exam focused on the arteries. 3D rendering: MIP reconstructed images were created and reviewed. COMPARISON: MRI-Brain without Contrast 09/08/2013 4:27 PM FINDINGS: Right internal carotid artery: Unremarkable. Intracranial segment is patent with no significant stenosis. No aneurysm. Right anterior cerebral artery: Unremarkable. No occlusion or significant stenosis. No aneurysm. Right middle cerebral artery: Unremarkable. No occlusion or significant stenosis. No aneurysm. Right posterior cerebral artery: Unremarkable. No occlusion or significant stenosis. No aneurysm. Right vertebral artery: Unremarkable. No occlusion or significant stenosis. No aneurysm. Left internal carotid artery: Unremarkable. Intracranial segment is patent with no significant stenosis. No aneurysm. Left anterior cerebral artery: Unremarkable. No occlusion or significant stenosis. No aneurysm. Left middle cerebral artery: Unremarkable. No occlusion or significant stenosis. No aneurysm. Left posterior cerebral artery: Unremarkable. No occlusion or significant stenosis. No aneurysm. Left vertebral artery: Unremarkable. No occlusion or significant stenosis. No aneurysm. Basilar artery: Unremarkable. No occlusion or significant stenosis. No aneurysm. IMPRESSION: No acute findings. Electronically signed by: Guzman Vásquez On 04/25/2019 06:45:48 AM
--- NOTE | 2019-04-25 07:16 | ECGEPIP ---
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
[2019-04-25 07:19] VITALS: BP 165/81
[2019-04-26] MEDS ORDERED: NAPR-837 PO (04:40)
[2019-04-26] MEDS ORDERED: ROBA750T4 PO (04:40)
== END 2019-04-25 07:20 | disposition home or self-care (01) ==
LOC: M ED 03:42
DX: S16.1XXA Strain of muscle, fascia and tendon at neck level, initial encounter (principal); M54.10 Radiculopathy, site unspecified; X50.0XXA Overexertion from strenuous movement or load, initial encounter; Y92.9 Unspecified place or not applicable; E11.9 Type 2 diabetes mellitus without complications; I12.9 Hypertensive chronic kidney disease with stage 1 through stage 4 chronic kidney disease, or unspecified chronic kidney disease; N18.9 Chronic kidney disease, unspecified; E78.49 Other hyperlipidemia; M10.9 Gout, unspecified; Z86.73 Personal history of transient ischemic attack (TIA), and cerebral infarction without residual deficits; Z79.84 Long term (current) use of oral hypoglycemic drugs; Z79.899 Other long term (current) drug therapy; Z88.2 Allergy status to sulfonamides

== ENCOUNTER 2019-04-26 01:49 | Emergency (ER) | payer MEDICARE, MEDICAID ==
[~2019-04-26] VITALS: Ht 162.6 cm; Wt 81.8 kg
[~2019-04-26 01:49] MED LIST changes: +FLUT15.820; +NABU-126 PO; +OMEP40CA2 PO; -OMEP40CA97 PO
[2019-04-26] MEDS ORDERED: METHOCARBAMOL 1,000 MG/10 ML VIAL (J2800) IV ONE (02:30)
[2019-04-26] MEDS ORDERED: KETOROLAC 30 MG/ML VIAL (J1885) IV ONE (03:45)
[2019-04-26] MEDS ORDERED: NAPR-837 PO (04:40)
[2019-04-26] MEDS ORDERED: ROBA750T4 PO (04:40)
[2019-04-26 05:12] VITALS: BP 213/99
[2019-04-26] MEDS ORDERED: ATENOLOL 25 MG TAB PO ONE (05:15)
[2019-04-26 05:19] VITALS: BP 184/90
== END 2019-04-26 05:21 | disposition home or self-care (01) ==
LOC: M ED 01:49
DX: S16.1XXA Strain of muscle, fascia and tendon at neck level, initial encounter (principal); X58.XXXA Exposure to other specified factors, initial encounter; Y93.84 Activity, sleeping; E78.5 Hyperlipidemia, unspecified; E11.22 Type 2 diabetes mellitus with diabetic chronic kidney disease; Z88.2 Allergy status to sulfonamides; Z79.84 Long term (current) use of oral hypoglycemic drugs; Z79.899 Other long term (current) drug therapy; I12.9 Hypertensive chronic kidney disease with stage 1 through stage 4 chronic kidney disease, or unspecified chronic kidney disease
CPT/HCPCS: 96374; 96375; 99284; J1885; J2800

== ENCOUNTER → 2019-06-03 | Outpatient (CLI) | payer MEDICARE, MEDICAID ==
[~2019-06-03] MED LIST changes: +NAPR-837 PO; -OMEP40CA2 PO; +OMEP40CA97 PO; +ROBA750T4 PO
[2019-06-03 12:52] LABS: ALBUMIN 3.5 GM/DL (3.2-5.2); BILIRUBIN,TOTAL 0.6 MG/DL (0.2-1.0); CALCIUM LEVEL 9.1 MG/DL (8.8-10.2); CHOLESTEROL RISK RATIO 4.771 (<5); CREATININE FOR GFR 1.29 MG/DL (0.70-1.30); GLOMERULAR FILTRATION RATE 57.6 (>42); POTASSIUM SERUM 4.6 MEQ/L (3.5-5.1); TOTAL PROTEIN 6.3 GM/DL (6.4-8.2)
[2019-06-03 13:28] LABS: MALB URINE SIEMENS 57.5 MG/L; MAU/CREAT RATIO 26.6 MCG/MG (0.0-30.0)
== END ==
LOC: M WUC 09:49
PROVIDERS: ATTEND Nurse Practitioner Family
DX: E11.22 Type 2 diabetes mellitus with diabetic chronic kidney disease (principal); E78.2 Mixed hyperlipidemia; Z87.39 Personal history of other diseases of the musculoskeletal system and connective tissue

== ENCOUNTER → 2019-09-01 | Outpatient (CLI) | payer MEDICARE, MEDICAID ==
[~2019-09-01] MED LIST changes: +ONDA-83 PO; -ONDA4TAB5 PO
[2019-09-01 17:26] LABS: ALBUMIN 3.6 GM/DL (3.2-5.2); BILIRUBIN,TOTAL 0.9 MG/DL (0.2-1.0); CALCIUM LEVEL 9.3 MG/DL (8.8-10.2); CHOLESTEROL RISK RATIO 2.21 (<5); CREATININE FOR GFR 1.38 MG/DL (0.70-1.30); GLOMERULAR FILTRATION RATE 53.2 (>42); POTASSIUM SERUM 4.2 MEQ/L (3.5-5.1); TOTAL PROTEIN 6.8 GM/DL (6.4-8.2)
[2019-09-02 12:33] LABS: TOTAL 25(OH) VITAMIN D 29.2 NG/ML (30.0-100.0)
== END ==
LOC: M WUC 09:25
PROVIDERS: ATTEND Nurse Practitioner Family
DX: E78.2 Mixed hyperlipidemia (principal); N18.3 Chronic kidney disease, stage 3 (moderate)

== ENCOUNTER → 2019-12-02 | Outpatient (CLI) | payer MEDICARE, MEDICAID ==
[2019-12-02 19:45] LABS: ALBUMIN 3.7 GM/DL (3.2-5.2); BILIRUBIN,TOTAL 1.1 MG/DL (0.2-1.0); CALCIUM LEVEL 8.8 MG/DL (8.8-10.2); CREATININE FOR GFR 1.45 MG/DL (0.70-1.30); GLOMERULAR FILTRATION RATE 50.2 (>42); POTASSIUM SERUM 4.9 MEQ/L (3.5-5.1); TOTAL PROTEIN 6.5 GM/DL (6.4-8.2); URIC ACID 6.3 MG/DL (3.5-7.2)
[2019-12-02 19:52] LABS: CREATININE, URINE 50.6 MG/DL; HEMOGLOBIN A1c 6.8 %; MALB URINE SIEMENS 10.9 MG/L; MAU/CREAT RATIO 21.5 MCG/MG (0.0-30.0)
== END ==
LOC: M WUC 15:12
PROVIDERS: ATTEND Nurse Practitioner Family
DX: E11.22 Type 2 diabetes mellitus with diabetic chronic kidney disease (principal); Z87.39 Personal history of other diseases of the musculoskeletal system and connective tissue; E55.9 Vitamin D deficiency, unspecified; Z79.899 Other long term (current) drug therapy

== ENCOUNTER 2019-12-21 14:27 | Emergency (ER) | payer MEDICARE, MEDICAID ==
[~2019-12-21] VITALS: Ht 162.6 cm; Wt 77.3 kg
[~2019-12-21 14:27] MED LIST changes: -ENAL20TA PO; +ENAL20TA11 PO; -LACT10SO29; +LACT20EL; -NABU-126; -NABU-126 PO; +NABU-51; +NABU-51 PO
[2019-12-21 15:20] LABS: BASO # 0.1 10^3/uL (0.0-0.2); BASO % 0.4 % (0.0-1.0); EOS # 0.3 10^3/uL (0.0-0.5); EOS % 2.2 % (0.0-3.0); HEMATOCRIT 41.1 % (42.0-52.0); HEMOGLOBIN 13.1 g/dl (13.5-17.5); LYMPH # 1.3 10^3/uL (1.5-5.0); LYMPH % 9.2 % (24.0-44.0); MEAN CORPUSCULAR HEMOGLOBIN 30.4 pg (27.0-33.0); MEAN CORPUSCULAR HGB CONC 31.9 g/dl (32.0-36.5); MEAN CORPUSCULAR VOLUME 95.4 fl (80.0-96.0); MONO # 1.3 10^3/uL (0.0-0.8); MONO % 9.1 % (0.0-5.0); NEUTROPHILS # 10.8 10^3/uL (1.5-8.5); NEUTROPHILS % 78.2 % (36.0-66.0); PLATELET COUNT, AUTOMATED 164 10^3/uL (150-450); RED BLOOD COUNT 4.31 10^6/uL (4.30-6.10); WHITE BLOOD COUNT 13.8 10^3/uL (4.0-10.0)
[2019-12-21 15:30] LABS: PROTHROMBIN TIME 12.9 SECONDS (11.8-14.0)
[2019-12-21 15:31] LABS: PARTIAL THROMBOPLASTIN TIME 29.3 SECONDS (25.0-38.4)
[2019-12-21 15:58] LABS: BLOOD UREA NITROGEN 31 MG/DL (7-18); CALCIUM LEVEL 8.9 MG/DL (8.8-10.2); CARBON DIOXIDE LEVEL 22 MEQ/L (21-32); CHLORIDE LEVEL 110 MEQ/L (98-107); CPK CREATINE PHOSPHOKINASE 162 U/L (39-308); CREATININE FOR GFR 1.43 MG/DL (0.70-1.30); GLUCOSE, FASTING 64 MG/DL (70-100); MB/CK RELATIVE INDEX 3.09 (< OR =4); POTASSIUM SERUM 5.5 MEQ/L (3.5-5.1); SODIUM LEVEL 143 MEQ/L (136-145); TROPONIN I < 0.02 NG/ML (< 0.10)
[2019-12-21 18:49] VITALS: BP 164/84
--- NOTE | 2019-12-22 08:07 | REP ---
CT BRAIN WITHOUT IV CONTRAST: CT brain performed without IV contrast. Coronal reconstruction images are performed. There is moderate atrophy. There is no midline shift or mass effect. There are mild periventricular chronic small vessel ischemic changes in the white matter. No acute intracranial hemorrhage. There is no extra-axial fluid collection. There are vascular calcifications in the carotid siphons. The visualized mastoid air cells and paranasal sinuses are clear. IMPRESSION: Stable chronic findings without evidence of acute intracranial process. Electronically Signed by Rich Apple MD 12/22/2019 09:59 A
--- NOTE | 2019-12-22 08:12 | REP ---
CHEST, SINGLE VIEW: Singe view of the chest is performed. There is mild elevation of the left hemidiaphragm. There is no acute infiltrate. Skin fold projects over the right lung base. Heart does not appear to be significantly enlarged. Mediastinal silhouette is somewhat magnified with tortuosity of the thoracic aorta and mild ectasia. IMPRESSION: No evidence of acute pulmonary disease. Electronically Signed by Rich Apple MD 12/22/2019 10:10 A
--- NOTE | 2019-12-22 19:46 | ECGEPIP ---
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
== END 2019-12-21 18:51 | disposition home or self-care (01) ==
LOC: EDBD 14:27 → M ED 14:27
DX: E11.649 Type 2 diabetes mellitus with hypoglycemia without coma (principal); I10 Essential (primary) hypertension; K21.9 Gastro-esophageal reflux disease without esophagitis; I25.2 Old myocardial infarction; Z79.899 Other long term (current) drug therapy; Z79.84 Long term (current) use of oral hypoglycemic drugs; Z88.1 Allergy status to other antibiotic agents; Z88.2 Allergy status to sulfonamides

== ENCOUNTER → 2020-04-13 | Outpatient (CLI) | payer MEDICARE, OTHER ==
[2020-04-13 13:06] LABS: ALBUMIN 3.7 GM/DL (3.2-5.2); BILIRUBIN,TOTAL 1.1 MG/DL (0.2-1.0); CALCIUM LEVEL 8.9 MG/DL (8.8-10.2); CHOLESTEROL RISK RATIO 2.422 (<5); CREATININE FOR GFR 1.88 MG/DL (0.70-1.30); GLOMERULAR FILTRATION RATE 37.2 (>42); POTASSIUM SERUM 4.9 MEQ/L (3.5-5.1); TOTAL PROTEIN 6.4 GM/DL (6.4-8.2); URIC ACID 5.6 MG/DL (3.5-7.2)
[2020-04-13 13:13] LABS: TOTAL 25(OH) VITAMIN D 27.4 NG/ML (30.0-100.0)
[2020-04-13 13:26] LABS: MALB URINE SIEMENS 50.9 MG/L; MAU/CREAT RATIO 34.1 MCG/MG (0.0-30.0)
[2020-04-13 14:27] LABS: HEMOGLOBIN A1c 6.1 %
== END ==
LOC: M WUC 08:41
PROVIDERS: ATTEND Nurse Practitioner Family
DX: E11.22 Type 2 diabetes mellitus with diabetic chronic kidney disease (principal); E78.2 Mixed hyperlipidemia; I12.9 Hypertensive chronic kidney disease with stage 1 through stage 4 chronic kidney disease, or unspecified chronic kidney disease; Z87.39 Personal history of other diseases of the musculoskeletal system and connective tissue; E55.9 Vitamin D deficiency, unspecified

== ENCOUNTER → 2020-04-14 | Outpatient (CLI) | payer MEDICARE, OTHER ==
[2020-04-14 13:43] LABS: CALCIUM LEVEL 8.9 MG/DL (8.8-10.2); CREATININE FOR GFR 1.9 MG/DL (0.70-1.30); GLOMERULAR FILTRATION RATE 36.8 (>42); POTASSIUM SERUM 4.9 MEQ/L (3.5-5.1)
== END ==
LOC: M PLALAB 11:46
PROVIDERS: ATTEND Nurse Practitioner Family
DX: E11.22 Type 2 diabetes mellitus with diabetic chronic kidney disease (principal); N18.3 Chronic kidney disease, stage 3 (moderate)

== ENCOUNTER → 2020-05-26 | Outpatient (REF) | payer MEDICARE, OTHER ==
[2020-05-26 21:48] LABS: FERRITIN 64 NG/ML (26-388); TOTAL IRON BINDING CAPACITY 290 UG/DL (250-450); TOTAL PROTEIN 6.5 GM/DL (6.4-8.2)
[2020-05-26 21:55] LABS: HEPATITIS B SURFACE ANTIBODY NEGATIVE (POSITIVE); VITAMIN B12 LEVEL 285 PG/ML
[2020-05-26 22:06] LABS: HEPATITIS B SURFACE ANTIGEN NEGATIVE (NEGATIVE)
[2020-05-26 22:34] LABS: HEPATITIS B CORE ANTIBODY IGM NEGATIVE (NEGATIVE)
[2020-05-27 07:34] LABS: IRON (FE) 67 UG/DL (65-175); PERCENT SATURATION 23.1 % (19.7-50.0)
[2020-05-27 19:17] LABS: COMPLEMENT C3 111 MG/DL (90-180); COMPLEMENT C4 30 MG/DL (10-40)
[2020-05-28 11:51] LABS: ALBUMIN 4.13 GM/DL (3.29-5.55); ALBUMIN % 63.5 % (55.8-66.1); ALPHA-1-GLOBULIN % 4.5 % (2.9-4.9); ALPHA-1-GLOBULINS 0.29 GM/DL (0.17-0.41); ALPHA-2-GLOBULINS 0.68 GM/DL (0.42-0.99); ALPHA-2-GLOBULINS % 10.4 % (7.1-11.8); BETA-1-GLOBULINS % 6.9 % (4.7-7.2); BETA-2-GLOBULINS % 5.5 % (3.2-6.5); GAMMA GLOBULIN % 9.2 % (11.1-18.8)
[2020-05-28 11:52] LABS: BETA-1-GLOBULINS 0.45 GM/DL (0.28-0.60); BETA-2-GLOBULINS 0.36 GM/DL (0.19-0.55)
[2020-05-29 16:08] LABS: ANCA-ATYPICAL <1:20 titer (Neg:<1:20); ANTI DS-DNA AB Negative (Negative); ANTINUCLEAR ANTIBODIES DIRECT Negative (Negative); CYTOPLASMIC NEUTROP AB ANCA-C <1:20 titer (Neg:<1:20); FREE LAMBDA LIGHT CHAINS SERUM 20.3 mg/L (5.7-26.3); KAPPA/LAMBDA RATIO SERUM 1.38 (0.26-1.65); PERINUCLEAR AB ANCA-P <1:20 titer (Neg:<1:20)
== END ==
LOC: M LAB REF 17:02
PROVIDERS: ATTEND Internal Medicine Nephrology
DX: D64.9 Anemia, unspecified (principal); R80.9 Proteinuria, unspecified

== ENCOUNTER → 2020-06-02 | Outpatient (CLI) | payer MEDICARE, OTHER ==
--- NOTE | 2020-06-02 16:18 | REP ---
INDICATION: CKD III ANEMIA. COMPARISON: CT abdomen pelvis 01/13/2019. TECHNIQUE: Standard renal sonographic technique. FINDINGS: The right kidney measures 11.7 x 6.3 x 5.3 cm. The cortex is mildly hyperechoic. There is no cortical atrophy. Sinus lipomatosis and some echogenic vessels in the renal hilus are noted. There is no hydronephrosis or hydroureter. No mass or contour abnormality. No perinephric fluid. The left kidney measured 12.2 x 5 x 4.9 cm. There is 16.3 mm echogenic focus in the lower pole as seen on previous CT and suggesting a nonobstructing calculus. Cortical thickness is slightly diminished there is sinus lipomatosis. There is mild increase in cortical echogenicity. No hydronephrosis or hydroureter. IMPRESSION: 1. Evidence for medical renal disease with increased cortical echogenicity and some cortical thinning on the left. 2. Nonobstructing stone 6 mm left lower pole. No hydronephrosis or hydroureter in either side 3. No solid renal mass or cyst visible. <Electronically signed by Tre Sunshine > 06/02/20 [id number]
== END ==
LOC: M RAD 13:31
PROVIDERS: ATTEND Internal Medicine Nephrology
DX: N18.30 Chronic kidney disease, stage 3 unspecified (principal); D63.1 Anemia in chronic kidney disease

== ENCOUNTER → 2020-11-05 | Outpatient (CLI) | payer MEDICARE, OTHER, MEDICAID ==
[~2020-11-05] MED LIST changes: -NABU-51; -NABU-51 PO; +NABU-71; +NABU-71 PO
[2020-11-05 19:22] LABS: HEMOGLOBIN A1c 6.3 %
[2020-11-05 21:12] LABS: MALB URINE SIEMENS 24.3 MG/L; MAU/CREAT RATIO 19.2 MCG/MG (0.0-30.0)
[2020-11-05 22:57] LABS: ALBUMIN 3.8 GM/DL (3.2-5.2); BILIRUBIN,TOTAL 0.6 MG/DL (0.2-1.0); CALCIUM LEVEL 9.1 MG/DL (8.8-10.2); CREATININE FOR GFR 1.77 MG/DL (0.70-1.30); GLOMERULAR FILTRATION RATE 39.8 (>42); POTASSIUM SERUM 4.6 MEQ/L (3.5-5.1); TOTAL PROTEIN 6.5 GM/DL (6.4-8.2)
== END ==
LOC: M WUC 14:17
PROVIDERS: ATTEND Nurse Practitioner Family
DX: Z12.11 Encounter for screening for malignant neoplasm of colon (principal); E11.22 Type 2 diabetes mellitus with diabetic chronic kidney disease

== ENCOUNTER → 2020-12-31 | Outpatient (CLI) | payer MEDICARE, OTHER ==
[2020-12-31 10:09] LABS: HEMATOCRIT 39.6 % (42.0-52.0); HEMOGLOBIN 12.4 g/dl (13.5-17.5); MEAN CORPUSCULAR HEMOGLOBIN 30.1 pg (27.0-33.0); MEAN CORPUSCULAR HGB CONC 31.3 g/dl (32.0-36.5); MEAN CORPUSCULAR VOLUME 96.1 fl (80.0-96.0); PLATELET COUNT, AUTOMATED 183 10^3/uL (150-450); RED BLOOD COUNT 4.12 10^6/uL (4.30-6.10); WHITE BLOOD COUNT 13.1 10^3/uL (4.0-10.0)
== END ==
LOC: M LAB 09:26
PROVIDERS: ATTEND Physician Assistant Medical
DX: R19.5 Other fecal abnormalities (principal)

== ENCOUNTER → 2021-03-08 | Outpatient (CLI) | payer MEDICARE, OTHER ==
[~2021-03-08] MED LIST changes: -DOXY100C37 PO; +DOXY1CAP62 PO; +OMEP40CA4 PO; -OMEP40CA97 PO
[2021-03-08 12:13] LABS: ALBUMIN 3.8 GM/DL (3.2-5.2); BILIRUBIN,TOTAL 0.8 MG/DL (0.2-1.0); CALCIUM LEVEL 8.9 MG/DL (8.8-10.2); CHOLESTEROL RISK RATIO 6.029 (<5); CREATININE FOR GFR 1.66 MG/DL (0.70-1.30); GLOMERULAR FILTRATION RATE 42.9 (>42); POTASSIUM SERUM 4.7 MEQ/L (3.5-5.1); TOTAL PROTEIN 6.4 GM/DL (6.4-8.2)
[2021-03-08 12:19] LABS: TOTAL 25(OH) VITAMIN D 22.4 NG/ML (30.0-100.0)
[2021-03-08 12:38] LABS: HEMOGLOBIN A1c 6.5 %
== END ==
LOC: M WUC 09:33
PROVIDERS: ATTEND Nurse Practitioner Family
DX: E11.22 Type 2 diabetes mellitus with diabetic chronic kidney disease (principal); E55.9 Vitamin D deficiency, unspecified; E78.2 Mixed hyperlipidemia; Z79.899 Other long term (current) drug therapy

== ENCOUNTER 2021-10-17 15:05 | Observation (INO) | payer MEDICAID, MEDICARE, OTHER ==
[~2021-10-17] VITALS: Ht 162.6 cm; Wt 87.2 kg
[~2021-10-17 15:05] MED LIST changes: +DOXY-443 PO; -DOXY1CAP62 PO
[2021-10-17] MEDS ORDERED: PANTOPRAZOLE 40MG VIAL IV ONE (15:50)
[2021-10-17 16:13] LABS: BASO # 0.1 10^3/uL (0.0-0.2); BASO % 0.5 % (0.0-1.0); EOS # 0.3 10^3/uL (0.0-0.5); EOS % 3.1 % (0.0-3.0); HEMATOCRIT 40.8 % (42.0-52.0); HEMOGLOBIN 12.7 g/dl (13.5-17.5); LYMPH # 1.5 10^3/uL (1.5-5.0); LYMPH % 14.1 % (24.0-44.0); MEAN CORPUSCULAR HEMOGLOBIN 29.6 pg (27.0-33.0); MEAN CORPUSCULAR HGB CONC 31.1 g/dl (32.0-36.5); MEAN CORPUSCULAR VOLUME 95.1 fl (80.0-96.0); MONO # 1.1 10^3/uL (0.0-0.8); MONO % 10.1 % (2.0-8.0); NEUTROPHILS # 7.5 10^3/uL (1.5-8.5); NEUTROPHILS % 70.7 % (36.0-66.0); PLATELET COUNT, AUTOMATED 192 10^3/uL (150-450); RED BLOOD COUNT 4.29 10^6/uL (4.30-6.10); WHITE BLOOD COUNT 10.6 10^3/uL (4.0-10.0)
[2021-10-17 16:28] LABS: INR 0.91; PARTIAL THROMBOPLASTIN TIME 26.9 SECONDS (25.9-37.0); PROTHROMBIN TIME 12.7 SECONDS (12.7-14.5)
[2021-10-17 16:40] LABS: ALBUMIN 3.7 GM/DL (3.2-5.2); BILIRUBIN,DIRECT 0.1 MG/DL (0.0-0.2); BILIRUBIN,TOTAL 0.6 MG/DL (0.2-1.0); CALCIUM LEVEL 8.7 MG/DL (8.8-10.2); CREATININE FOR GFR 1.83 MG/DL (0.70-1.30); GLOMERULAR FILTRATION RATE 38.2 (>42); POTASSIUM SERUM 5.7 MEQ/L (3.5-5.1); TOTAL PROTEIN 6.4 GM/DL (6.4-8.2)
[2021-10-17] MEDS ORDERED: NS 1,000 ML IV ONE (18:15)
[2021-10-17] MEDS ORDERED: NS 1,000 ML IV SCH (20:25)
[2021-10-17] MEDS ORDERED: HYDR12CA PO (20:51)
[2021-10-17] MEDS ORDERED: ATOR40TA75 PO (20:51)
[2021-10-17] MEDS ORDERED: MED REC COMMENT (20:53)
[2021-10-17] MEDS ORDERED: HOME MED LIST COMPLETE! XX SCH (21:00)
[2021-10-17] MEDS ORDERED: hydrALAZINE 20MG/ML 1ML VIAL (J0360 PER 20MG) IV ONE (21:35)
[2021-10-17 22:11] LABS: RSV AMPLIFICATION NEGATIVE (NEGATIVE)
[2021-10-17] MEDS ORDERED: GLUCAGON INJ 1MG VIAL SC PRN (23:35)
[2021-10-17] MEDS: NS 1,000 ML IV SCH (23:35)
[2021-10-17] MEDS ORDERED: GLUCOSE 4GM CHEW TABLET PO PRN (23:35)
[2021-10-17] MEDS ORDERED: DEXTROSE 50% 50 ML SYRINGE IV PRN (23:35)
[2021-10-18] MEDS: HumaLOG INSULIN (NovoLOG) PER UNIT SC SCH ×4 (06:00→17:23)
[2021-10-18] MEDS ORDERED: hydrALAZINE 20MG/ML 1ML VIAL (J0360 PER 20MG) IV PRN (06:15)
[2021-10-18 07:29] LABS: HEMATOCRIT 41.3 % (42.0-52.0); HEMOGLOBIN 13.4 g/dl (13.5-17.5); MEAN CORPUSCULAR HEMOGLOBIN 30.7 pg (27.0-33.0); MEAN CORPUSCULAR HGB CONC 32.4 g/dl (32.0-36.5); MEAN CORPUSCULAR VOLUME 94.7 fl (80.0-96.0); PLATELET COUNT, AUTOMATED 184 10^3/uL (150-450); RED BLOOD COUNT 4.36 10^6/uL (4.30-6.10); WHITE BLOOD COUNT 12.2 10^3/uL (4.0-10.0)
[2021-10-18 07:57] LABS: CALCIUM LEVEL 9.2 MG/DL (8.8-10.2); CREATININE FOR GFR 1.49 MG/DL (0.70-1.30); GLOMERULAR FILTRATION RATE 48.4 (>42); POTASSIUM SERUM 5.6 MEQ/L (3.5-5.1)
[2021-10-18] MEDS ORDERED: ENALAPRIL MALEATE 10 MG TAB PO SCH (09:00)
[2021-10-18] MEDS: hydroCHLOROthiazide 12.5 MG CAPSULE PO SCH ×2 (09:00→09:08)
[2021-10-18 09:03] LABS: MAGNESIUM LEVEL 2.2 MG/DL (1.8-2.4)
[2021-10-18] MEDS: SUCRALFATE SUSP 1GM/10ML UD PO SCH ×2 (09:07→20:06)
[2021-10-18 09:09] LABS: BASO # 0.1 10^3/uL (0.0-0.2); BASO % 0.6 % (0.0-1.0); EOS # 0.3 10^3/uL (0.0-0.5); EOS % 2.4 % (0.0-3.0); LYMPH # 1.6 10^3/uL (1.5-5.0); MONO # 1.1 10^3/uL (0.0-0.8); NEUTROPHILS # 9.1 10^3/uL (1.5-8.5)
[2021-10-18] MEDS: ATORVASTATIN 20 MG TAB PO SCH (09:09)
[2021-10-18] MEDS: PANTOPRAZOLE 40MG VIAL IV SCH ×2 (09:10→20:06)
[2021-10-18] MEDS: NS 1,000 ML IV SCH ×2 (09:11)
[2021-10-18 09:32] VITALS: BP 130/82
[2021-10-18] MEDS ORDERED: NS 1,000 ML IV ONE (10:45)
[2021-10-18] MEDS ORDERED: ATOR40TA75 PO (11:37)
[2021-10-18] MEDS ORDERED: ENAL20TA11 PO (11:37)
[2021-10-18] MEDS ORDERED: HYDR12CA PO (11:37)
[2021-10-18] MEDS ORDERED: CALCIUM GLUCONATE 1,000 MG in D5W MINI-BAG PLUS 100 ML IV ONE ×2 (12:00→15:30)
[2021-10-18 14:25] VITALS: BP 182/72
[2021-10-18] MEDS ORDERED: PATIROMER SORBITEX CALCIUM 8.4 GM POWDER PACKET (VELTASSA) PO ONE (15:30)
[2021-10-18] MEDS ORDERED: **hydrALAZINE** 10 MG TAB PO ONE (20:00)
[2021-10-18 20:53] VITALS: BP 198/88
[2021-10-18 21:00] VITALS: BP 156/88
[2021-10-18 21:11] LABS: CALCIUM LEVEL 8.8 MG/DL (8.8-10.2); CREATININE FOR GFR 1.53 MG/DL (0.70-1.30); POTASSIUM SERUM 4.4 MEQ/L (3.5-5.1)
[2021-10-19] VITALS: BP 138/64
[2021-10-19 05:56] VITALS: BP 144/68
[2021-10-19] MEDS: HumaLOG INSULIN (NovoLOG) PER UNIT SC SCH ×4 (06:00→18:23)
[2021-10-19 06:24] LABS: BASO % 0.3 % (0.0-1.0); EOS # 0.3 10^3/uL (0.0-0.5); EOS % 2.8 % (0.0-3.0); HEMATOCRIT 38.4 % (42.0-52.0); HEMOGLOBIN 12.3 g/dl (13.5-17.5); LYMPH # 1.1 10^3/uL (1.5-5.0); LYMPH % 10.4 % (24.0-44.0); MEAN CORPUSCULAR HEMOGLOBIN 30.4 pg (27.0-33.0); MEAN CORPUSCULAR VOLUME 94.8 fl (80.0-96.0); MONO # 1.1 10^3/uL (0.0-0.8); MONO % 10.4 % (2.0-8.0); NEUTROPHILS # 7.6 10^3/uL (1.5-8.5); PLATELET COUNT, AUTOMATED 182 10^3/uL (150-450); RED BLOOD COUNT 4.05 10^6/uL (4.30-6.10); WHITE BLOOD COUNT 10.1 10^3/uL (4.0-10.0)
[2021-10-19 06:50] LABS: CALCIUM LEVEL 9.1 MG/DL (8.8-10.2); CREATININE FOR GFR 1.41 MG/DL (0.70-1.30); GLOMERULAR FILTRATION RATE 51.6 (>42); MAGNESIUM LEVEL 1.9 MG/DL (1.8-2.4); POTASSIUM SERUM 4.4 MEQ/L (3.5-5.1)
[2021-10-19] MEDS: SUCRALFATE SUSP 1GM/10ML UD PO SCH (09:00)
[2021-10-19] MEDS: NS 1,000 ML IV SCH ×2 (10:00→15:35)
[2021-10-19] MEDS: PANTOPRAZOLE 40MG VIAL IV SCH (10:34)
[2021-10-19 10:37] VITALS: BP 143/68
[2021-10-19] MEDS: ATORVASTATIN 20 MG TAB PO SCH (10:38)
[2021-10-19 14:00] VITALS: BP 154/76
[2021-10-19] MEDS ORDERED: LIDOCAINE 2% 100MG/5ML SDV (FOR ANES.) As Ordered ONE (14:15)
[2021-10-19] MEDS ORDERED: propofoL 200 MG/20 ML VIAL As Ordered ONE ×2 (14:15→16:05)
[2021-10-19 16:24] VITALS: BP 127/64
[2021-10-19] MEDS ORDERED: SUCR1TA PO (17:28)
[2021-10-19] MEDS ORDERED: OMEP40CA4 PO (17:28)
[2021-10-19] MEDS ORDERED: HYDR-3490 PO (17:28)
[2021-10-20] MEDS ORDERED: OMEPRAZOLE 20MG CAP PO SCH (09:00)
== END 2021-10-19 18:57 | disposition home or self-care (01) ==
LOC: M ED 15:05 → M ED INP 15:06 → ENRESERV 10-18 13:35 → M MSPAV 10-18 14:25
PROVIDERS: ADMIT Internal Medicine; ATTEND Internal Medicine
DX: K92.1 Melena (principal); K29.80 Duodenitis without bleeding; K29.70 Gastritis, unspecified, without bleeding; E87.5 Hyperkalemia; E11.9 Type 2 diabetes mellitus without complications; I12.9 Hypertensive chronic kidney disease with stage 1 through stage 4 chronic kidney disease, or unspecified chronic kidney disease; N18.30 Chronic kidney disease, stage 3 unspecified; R74.01 Elevation of levels of liver transaminase levels; E66.9 Obesity, unspecified; Z79.899 Other long term (current) drug therapy; Z88.2 Allergy status to sulfonamides; E78.5 Hyperlipidemia, unspecified
CPT/HCPCS: 36415; 43239; 74021; 74176; 80048; 80076; 82270; 83690; 83735; 84132; 85025; 85027; 85610; 85730; 86850; 86900; 86901; 87631; 88305; 93005; 93041; 96361; 96374; 96375; 96376; 99285; G0378; J0360; J0610; J1815

== ENCOUNTER → 2021-11-22 | Outpatient (CLI) | payer MEDICARE, MEDICAID ==
[~2021-11-22] MED LIST changes: +ATOR40TA75 PO; +GLIP5TAB20 PO; +HYDR-3490 PO; +HYDR12CA PO; +MED REC COMMENT; +SUCR1TA PO
== END ==
LOC: M LABSMTC 10:42
PROVIDERS: ATTEND Anesthesiology
DX: Z01.818 Encounter for other preprocedural examination (principal); Z11.52 Encounter for screening for COVID-19

== ENCOUNTER 2021-11-26 07:35 | Day surgery (SDC) | payer MEDICARE, MEDICAID ==
[~2021-11-26] VITALS: Ht 162.6 cm; Wt 84.9 kg
[~2021-11-26 07:35] MED LIST changes: +LIDOCAINE 2% 100MG/5ML SDV (FOR ANES.) As Ordered ONE; +NS 1,000 ML IV ONE; +propofoL 200 MG/20 ML VIAL As Ordered ONE
[2021-11-26] MEDS ORDERED: GLYCOPYRROLATE INJ 0.2 MG/ML 2 ML VIAL As Ordered ONE (08:59)
[2021-11-26 09:30] VITALS: BP 134/70
== END 2021-11-26 09:41 | disposition home or self-care (01) ==
LOC: M OPP 07:35
PROVIDERS: ATTEND Internal Medicine Gastroenterology
DX: K63.5 Polyp of colon (principal); K57.30 Diverticulosis of large intestine without perforation or abscess without bleeding; K64.8 Other hemorrhoids; R19.5 Other fecal abnormalities; E11.9 Type 2 diabetes mellitus without complications; I10 Essential (primary) hypertension; Z86.73 Personal history of transient ischemic attack (TIA), and cerebral infarction without residual deficits; Z87.442 Personal history of urinary calculi; Z79.84 Long term (current) use of oral hypoglycemic drugs; Z79.899 Other long term (current) drug therapy

== ENCOUNTER → 2022-01-06 | Outpatient (CLI) | payer MEDICARE, MEDICAID ==
[~2022-01-06] MED LIST changes: -LIDOCAINE 2% 100MG/5ML SDV (FOR ANES.) As Ordered ONE; -NS 1,000 ML IV ONE; -propofoL 200 MG/20 ML VIAL As Ordered ONE
[2022-01-06 17:06] LABS: HEMATOCRIT 39.1 % (42.0-52.0); HEMOGLOBIN 12.1 g/dl (13.5-17.5); MEAN CORPUSCULAR HEMOGLOBIN 30.3 pg (27.0-33.0); MEAN CORPUSCULAR HGB CONC 30.9 g/dl (32.0-36.5); PLATELET COUNT, AUTOMATED 220 10^3/uL (150-450); RED BLOOD COUNT 3.99 10^6/uL (4.30-6.10); WHITE BLOOD COUNT 9.4 10^3/uL (4.0-10.0)
[2022-01-06 17:34] LABS: ALBUMIN 3.5 GM/DL (3.2-5.2); BILIRUBIN,TOTAL 0.5 MG/DL (0.2-1.0); CALCIUM LEVEL 9.1 MG/DL (8.8-10.2); CREATININE FOR GFR 1.58 MG/DL (0.70-1.30); GLOMERULAR FILTRATION RATE 45.3 (>42); POTASSIUM SERUM 4.7 MEQ/L (3.5-5.1); TOTAL PROTEIN 6.2 GM/DL (6.4-8.2)
[2022-01-06 17:43] LABS: MALB URINE SIEMENS 80.4 MG/L; MAU/CREAT RATIO 53.9 MCG/MG (0.0-30.0)
[2022-01-06 17:50] LABS: HEMOGLOBIN A1c 7.3 %
== END ==
LOC: M PLALAB 14:22
PROVIDERS: ATTEND Nurse Practitioner Adult Health
DX: E11.22 Type 2 diabetes mellitus with diabetic chronic kidney disease (principal); K29.70 Gastritis, unspecified, without bleeding
CPT/HCPCS: 36415; 80053; 82043; 83036; 85027; G0463

== ENCOUNTER → 2022-02-11 | Outpatient (REF) | payer MEDICARE, MEDICAID ==
[2022-02-11 19:01] LABS: PERCENT SATURATION 12.3 % (19.7-50.0)
== END ==
LOC: M LAB REF 16:48
PROVIDERS: ATTEND Internal Medicine Nephrology
DX: E61.1 Iron deficiency (principal); D63.1 Anemia in chronic kidney disease; N18.9 Chronic kidney disease, unspecified

== ENCOUNTER 2022-02-22 11:13 | Observation (INO) | payer MEDICARE, MEDICAID ==
[~2022-02-22] VITALS: Ht 162.6 cm; Wt 86.5 kg
[2022-02-22 12:36] LABS: BASO # 0.1 10^3/uL (0.0-0.2); BASO % 0.4 % (0.0-1.0); EOS # 0.2 10^3/uL (0.0-0.5); EOS % 1.5 % (0.0-3.0); HEMATOCRIT 39.9 % (42.0-52.0); HEMOGLOBIN 12.7 g/dl (13.5-17.5); LYMPH # 1.5 10^3/uL (1.5-5.0); LYMPH % 12.8 % (24.0-44.0); MEAN CORPUSCULAR HEMOGLOBIN 30.7 pg (27.0-33.0); MEAN CORPUSCULAR HGB CONC 31.8 g/dl (32.0-36.5); MEAN CORPUSCULAR VOLUME 96.4 fl (80.0-96.0); MONO % 7.9 % (2.0-8.0); NEUTROPHILS # 9.2 10^3/uL (1.5-8.5); NEUTROPHILS % 76.4 % (36.0-66.0); PLATELET COUNT, AUTOMATED 229 10^3/uL (150-450); RED BLOOD COUNT 4.14 10^6/uL (4.30-6.10)
[2022-02-22 12:58] LABS: CALCIUM LEVEL 9.8 MG/DL (8.8-10.2); CREATININE FOR GFR 2.15 MG/DL (0.70-1.30); GLOMERULAR FILTRATION RATE 31.7 (>42); POTASSIUM SERUM 5.1 MEQ/L (3.5-5.1)
[2022-02-22] MEDS ORDERED: NS 1,000 ML IV ONE (13:25)
[2022-02-22] MEDS ORDERED: OMEP40CA5 PO (14:13)
[2022-02-22] MEDS ORDERED: GLIP2.5T6 PO (14:13)
[2022-02-22] MEDS ORDERED: HYDR-3490 PO (14:13)
[2022-02-22] MEDS ORDERED: ATEN25TA PO (14:14)
[2022-02-22] MEDS ORDERED: ACET-897 PO (14:14)
[2022-02-22] MEDS ORDERED: HOME MED LIST COMPLETE! XX SCH (14:15)
[2022-02-22 14:33] LABS: CK-MB VALUE MASS 4.1 NG/ML (<3.6); MB/CK RELATIVE INDEX 4.1 (< OR =4)
[2022-02-22 14:41] LABS: RSV AMPLIFICATION NEGATIVE (NEGATIVE)
[2022-02-22] MEDS ORDERED: ACETAMINOPHEN TAB 650MG DOSE (2X325MG) PO PRN (18:35)
[2022-02-22] MEDS ORDERED: GLUCOSE 4GM CHEW TABLET PO PRN (18:35)
[2022-02-22] MEDS: NS 1,000 ML IV SCH ×3 (18:35→21:39)
[2022-02-22] MEDS ORDERED: GLUCAGON INJ 1MG VIAL SC PRN (18:35)
[2022-02-22] MEDS ORDERED: DEXTROSE 50% 50 ML SYRINGE IV PRN (18:35)
[2022-02-22 18:46] LABS: CALCIUM LEVEL 9.4 MG/DL (8.8-10.2); CREATININE FOR GFR 1.91 MG/DL (0.70-1.30); GLOMERULAR FILTRATION RATE 36.4 (>42)
[2022-02-22 19:13] LABS: INR 0.99; PROTHROMBIN TIME 13.5 SECONDS (12.7-14.5)
[2022-02-22 20:21] LABS: APPEARANCE, URINE CLEAR (CLEAR); BACTERIA, URINE AUTO NEGATIVE (NEGATIVE); BILIRUBIN, URINE AUTO NEGATIVE (NEGATIVE); BLOOD, URINE BLOOD NEGATIVE (NEGATIVE); COLOR, URINE YELLOW (YELLOW); GLUCOSE, URINE (UA) AUTO NEGATIVE (NEGATIVE); KETONE, URINE AUTO NEGATIVE (NEGATIVE); LEUKOCYTE ESTERASE, URINE AUTO NEGATIVE (NEGATIVE); NITRITE, URINE AUTO NEGATIVE (NEGATIVE); PROTEIN, URINE AUTO NEGATIVE (NEGATIVE); RBC, URINE AUTO 0 /HPF (0-3); SPECIFIC GRAVITY URINE AUTO 1.016 (1.002-1.035); SQUAMOUS EPITHELIAL CELL UR AU 0 /HPF (0-6); UROBILINOGEN, URINE AUTO 0.2 mg/dL (0.0-2.0); WBC, URINE AUTO 0 /HPF (0-3)
[2022-02-22 20:52] LABS: TOTAL PROTEIN,RANDOM URINE 16.3 MG/DL (0.0-12.0)
[2022-02-22] MEDS ORDERED: INSULIN LISPRO (NovoLOG) PER UNIT SC SCH (21:00)
[2022-02-22 21:45] VITALS: BP 154/62
[2022-02-22] MEDS: SUCRALFATE 1 GM TAB PO SCH (22:21)
[2022-02-23] MEDS: NS 1,000 ML IV SCH (05:25)
[2022-02-23 06:00] VITALS: BP 153/72
[2022-02-23 06:07] LABS: HEMATOCRIT 38.5 % (42.0-52.0); MEAN CORPUSCULAR HEMOGLOBIN 30.6 pg (27.0-33.0); MEAN CORPUSCULAR HGB CONC 31.2 g/dl (32.0-36.5); MEAN CORPUSCULAR VOLUME 98.2 fl (80.0-96.0); PLATELET COUNT, AUTOMATED 200 10^3/uL (150-450); RED BLOOD COUNT 3.92 10^6/uL (4.30-6.10); WHITE BLOOD COUNT 8.8 10^3/uL (4.0-10.0)
[2022-02-23 06:45] LABS: CALCIUM LEVEL 8.7 MG/DL (8.8-10.2); CREATININE FOR GFR 1.51 MG/DL (0.70-1.30); GLOMERULAR FILTRATION RATE 47.7 (>42); MAGNESIUM LEVEL 2.1 MG/DL (1.8-2.4); POTASSIUM SERUM 4.9 MEQ/L (3.5-5.1)
[2022-02-23] MEDS ORDERED: INSULIN LISPRO (NovoLOG) PER UNIT SC SCH (07:30)
[2022-02-23] MEDS: SUCRALFATE 1 GM TAB PO SCH ×2 (08:13→13:10)
[2022-02-23] MEDS: INSULIN LISPRO (NovoLOG) PER UNIT SC SCH ×2 (08:13→13:11)
[2022-02-23] MEDS: atenoloL 25 MG TAB PO SCH ×2 (08:16→08:28)
[2022-02-23 08:59] VITALS: BP 140/70
[2022-02-23] MEDS ORDERED: OMEPRAZOLE 20MG CAP PO SCH (09:00)
[2022-02-23] MEDS ORDERED: ATORVASTATIN 20 MG TAB PO SCH (09:00)
[2022-02-23 12:00] VITALS: BP 135/63
[2022-02-23] MEDS ORDERED: AMLO1TAB25 PO (14:31)
== END 2022-02-23 15:25 | disposition home or self-care (01) ==
LOC: M ED 11:13 → M ED INP 18:32 → ENRESERV 20:10 → M 4MAIN 22:06
PROVIDERS: ADMIT Internal Medicine; ATTEND Family Medicine
DX: N17.9 Acute kidney failure, unspecified (principal); N18.30 Chronic kidney disease, stage 3 unspecified; K92.9 Disease of digestive system, unspecified; I12.9 Hypertensive chronic kidney disease with stage 1 through stage 4 chronic kidney disease, or unspecified chronic kidney disease; E11.9 Type 2 diabetes mellitus without complications; E78.5 Hyperlipidemia, unspecified; M10.9 Gout, unspecified; K29.50 Unspecified chronic gastritis without bleeding; Z79.84 Long term (current) use of oral hypoglycemic drugs; Z79.82 Long term (current) use of aspirin; Z79.899 Other long term (current) drug therapy
CPT/HCPCS: 36415; 76775; 80048; 81001; 82270; 82550; 82553; 82570; 83735; 83935; 84156; 84300; 84484; 85025; 85027; 85610; 85730; 86850; 86900; 86901; 87631; 93005; 96361; 96374; 99284; G0378; J1815

== ENCOUNTER 2022-03-03 17:36 | Emergency (ER) | payer MEDICAID, MEDICARE ==
[~2022-03-03] VITALS: Ht 162.6 cm; Wt 86.4 kg
[~2022-03-03 17:36] MED LIST changes: +ACET-897 PO; +AMLO1TAB25 PO; +GLIP2.5T6 PO; +OMEP40CA5 PO
[2022-03-03] MEDS ORDERED: ATEN25TA (17:55)
[2022-03-03 18:38] LABS: RSV AMPLIFICATION NEGATIVE (NEGATIVE)
[2022-03-04 01:25] LABS: BASO % 0.3 % (0.0-1.0); EOS # 0.3 10^3/uL (0.0-0.5); EOS % 2.3 % (0.0-3.0); HEMOGLOBIN 13.1 g/dl (13.5-17.5); LYMPH # 1.6 10^3/uL (1.5-5.0); LYMPH % 12.6 % (24.0-44.0); MEAN CORPUSCULAR HEMOGLOBIN 30.2 pg (27.0-33.0); MEAN CORPUSCULAR VOLUME 94.5 fl (80.0-96.0); MONO # 1.3 10^3/uL (0.0-0.8); MONO % 10.2 % (2.0-8.0); NEUTROPHILS # 9.4 10^3/uL (1.5-8.5); NEUTROPHILS % 73.9 % (36.0-66.0); PLATELET COUNT, AUTOMATED 199 10^3/uL (150-450); RED BLOOD COUNT 4.34 10^6/uL (4.30-6.10); WHITE BLOOD COUNT 12.7 10^3/uL (4.0-10.0)
[2022-03-04 02:06] LABS: ALBUMIN 3.6 GM/DL (3.2-5.2); CALCIUM LEVEL 8.9 MG/DL (8.8-10.2); CREATININE FOR GFR 1.45 MG/DL (0.70-1.30); MAGNESIUM LEVEL 2.2 MG/DL (1.8-2.4); POTASSIUM SERUM 4.1 MEQ/L (3.5-5.1); THYROID STIMULATING HORMONE 1.68 uIU/ML (0.358-3.740); TOTAL PROTEIN 6.7 GM/DL (6.4-8.2)
[2022-03-04] MEDS ORDERED: MEDR4PAK PO (03:12)
[2022-03-04 03:36] VITALS: BP 145/70
== END 2022-03-04 03:49 | disposition home or self-care (01) ==
LOC: M ED 17:36
DX: M54.12 Radiculopathy, cervical region (principal); I44.0 Atrioventricular block, first degree; I44.4 Left anterior fascicular block; E11.9 Type 2 diabetes mellitus without complications; I10 Essential (primary) hypertension; N18.30 Chronic kidney disease, stage 3 unspecified; Z86.73 Personal history of transient ischemic attack (TIA), and cerebral infarction without residual deficits; Z79.4 Long term (current) use of insulin; Z79.899 Other long term (current) drug therapy

== ENCOUNTER → 2022-11-29 | Outpatient (CLI) | payer MEDICARE, OTHER ==
[~2022-11-29] MED LIST changes: +ATEN25TA; +ENAL1TAB52 PO; -ENAL20TA11 PO; +MEDR4PAK PO
[2022-11-29 14:35] LABS: HEMOGLOBIN A1c 7.8 % (4.0-6.0)
[2022-11-29 14:43] LABS: URIC ACID 8.1 MG/DL (3.7-9.2)
[2022-11-29 14:46] LABS: ALBUMIN 3.7 G/DL (3.2-5.2); BILIRUBIN,TOTAL 0.9 MG/DL (0.3-1.2); CALCIUM LEVEL 8.9 MG/DL (8.3-10.6); CREATININE FOR GFR 1.87 MG/DL (0.70-1.30); GLOMERULAR FILTRATION RATE 37.2 (>35); TOTAL PROTEIN 6.2 G/DL (5.7-8.2)
[2022-11-29 14:51] LABS: CREATININE, URINE 93.2 MG/DL
[2022-11-29 14:52] LABS: MAU/CREAT RATIO 18.2 MCG/MG (0.0-30.0)
== END ==
LOC: M PLALAB 11:09
PROVIDERS: ATTEND Nurse Practitioner Adult Health
DX: E11.22 Type 2 diabetes mellitus with diabetic chronic kidney disease (principal); I12.9 Hypertensive chronic kidney disease with stage 1 through stage 4 chronic kidney disease, or unspecified chronic kidney disease; N18.32 Chronic kidney disease, stage 3b; E78.2 Mixed hyperlipidemia; E55.9 Vitamin D deficiency, unspecified; Z87.39 Personal history of other diseases of the musculoskeletal system and connective tissue; Z86.73 Personal history of transient ischemic attack (TIA), and cerebral infarction without residual deficits
CPT/HCPCS: 36415; 80053; 82043; 83036; 84550; G0463

== ENCOUNTER → 2023-05-10 | Outpatient (CLI) | payer OTHER, MEDICAID ==
[2023-05-10 15:36] LABS: HEMOGLOBIN A1c 8.5 % (4.0-6.0)
[2023-05-10 15:38] LABS: CREATININE, URINE 90.4 MG/DL; MAU/CREAT RATIO 25.4 MCG/MG (0.0-30.0); URIC ACID 6.4 MG/DL (3.7-9.2)
[2023-05-10 16:06] LABS: ALBUMIN 3.7 G/DL (3.2-5.2); BILIRUBIN,TOTAL 0.9 MG/DL (0.3-1.2); CHOLESTEROL RISK RATIO 3.71 (<5); CREATININE FOR GFR 1.63 MG/DL (0.70-1.30); GLOMERULAR FILTRATION RATE 43.6 (>35); HDL CHOLESTEROL 45.2 MG/DL (>40); LDL CHOLESTEROL 80.2 MG/DL (<100); NON-HDL-C 122.8 MG/DL; POTASSIUM SERUM 4.9 MMOL/L (3.5-5.1); TOTAL 25(OH) VITAMIN D 29.6 NG/ML (20.0-100.0); TOTAL PROTEIN 6.3 G/DL (5.7-8.2)
== END ==
LOC: M PLALAB 11:49
PROVIDERS: ATTEND Nurse Practitioner Adult Health
DX: E11.22 Type 2 diabetes mellitus with diabetic chronic kidney disease (principal); E55.9 Vitamin D deficiency, unspecified; E78.2 Mixed hyperlipidemia; Z87.39 Personal history of other diseases of the musculoskeletal system and connective tissue

== ENCOUNTER 2023-06-04 09:29 | Emergency (ER) | payer OTHER, MEDICAID ==
[2023-06-04 11:54] LABS: BASO # 0.1 10^3/uL (0.0-0.2); BASO % 0.4 % (0.0-1.0); EOS # 0.2 10^3/uL (0.0-0.5); EOS % 1.7 % (0.0-3.0); HEMATOCRIT 40.3 % (42.0-52.0); HEMOGLOBIN 12.9 g/dl (13.5-17.5); LYMPH # 1.3 10^3/uL (1.5-5.0); LYMPH % 10.6 % (24.0-44.0); MEAN CORPUSCULAR VOLUME 93.7 fl (80.0-96.0); MONO # 1.3 10^3/uL (0.0-0.8); NEUTROPHILS # 9.7 10^3/uL (1.5-8.5); NEUTROPHILS % 76.7 % (36.0-66.0); PLATELET COUNT, AUTOMATED 208 10^3/uL (150-450); WHITE BLOOD COUNT 12.7 10^3/uL (4.0-10.0)
[2023-06-04 12:05] LABS: INR 1.01
[2023-06-04 12:06] LABS: PARTIAL THROMBOPLASTIN TIME 25.5 SECONDS (24.8-34.2)
[2023-06-04 12:17] LABS: ALBUMIN 3.6 G/DL (3.2-5.2); BILIRUBIN,DIRECT 0.3 MG/DL (<0.4); CALCIUM LEVEL 8.8 MG/DL (8.3-10.6); CREATININE FOR GFR 1.4 MG/DL (0.70-1.30); GLOMERULAR FILTRATION RATE 51.9 (>35); POTASSIUM SERUM 4.8 MMOL/L (3.5-5.1); TOTAL PROTEIN 6.3 G/DL (5.7-8.2)
[2023-06-04 13:03] VITALS: BP 172/72; TEMP 97.6; O2SAT 98
== END 2023-06-04 13:10 | disposition home or self-care (01) ==
LOC: M ED 09:29 → EDBD 09:29 → M ED 13:10
DX: K92.1 Melena (principal); E11.9 Type 2 diabetes mellitus without complications; I10 Essential (primary) hypertension; Z79.84 Long term (current) use of oral hypoglycemic drugs; Z86.73 Personal history of transient ischemic attack (TIA), and cerebral infarction without residual deficits; Z88.2 Allergy status to sulfonamides; Z79.02 Long term (current) use of antithrombotics/antiplatelets; Z79.83 Long term (current) use of bisphosphonates; Z79.899 Other long term (current) drug therapy

== ENCOUNTER 2023-07-25 14:03 | Emergency (ER) | payer OTHER, MEDICAID ==
[~2023-07-25] VITALS: Ht 162.6 cm; Wt 81.5 kg
[2023-07-25 16:28] VITALS: BP 134/64; TEMP 99.6; O2SAT 96
[2023-07-25] MEDS ORDERED: MUCI1TAB16 PO (17:33)
== END 2023-07-25 17:40 | disposition home or self-care (01) ==
LOC: M ED 14:03
DX: U07.1 COVID-19 (principal); E11.9 Type 2 diabetes mellitus without complications; I10 Essential (primary) hypertension; E78.5 Hyperlipidemia, unspecified; N18.9 Chronic kidney disease, unspecified; Z86.79 Personal history of other diseases of the circulatory system; Z88.2 Allergy status to sulfonamides; Z79.02 Long term (current) use of antithrombotics/antiplatelets; Z79.4 Long term (current) use of insulin; Z79.899 Other long term (current) drug therapy

== ENCOUNTER 2023-07-29 13:01 | Emergency (ER) | payer OTHER, MEDICAID ==
[~2023-07-29] VITALS: Ht 162.6 cm; Wt 77.3 kg
[~2023-07-29 13:01] MED LIST changes: +MUCI1TAB16 PO
[2023-07-29 14:21] LABS: BASO % 0.1 % (0.0-1.0); HEMATOCRIT 37.1 % (42.0-52.0); HEMOGLOBIN 12.1 g/dl (13.5-17.5); LYMPH # 0.5 10^3/uL (1.5-5.0); LYMPH % 6.8 % (24.0-44.0); MEAN CORPUSCULAR HEMOGLOBIN 30.2 pg (27.0-33.0); MEAN CORPUSCULAR HGB CONC 32.6 g/dl (32.0-36.5); MEAN CORPUSCULAR VOLUME 92.5 fl (80.0-96.0); MONO % 12.5 % (2.0-8.0); NEUTROPHILS # 6.2 10^3/uL (1.5-8.5); NEUTROPHILS % 78.8 % (36.0-66.0); PLATELET COUNT, AUTOMATED 133 10^3/uL (150-450); RED BLOOD COUNT 4.01 10^6/uL (4.30-6.10); WHITE BLOOD COUNT 7.8 10^3/uL (4.0-10.0)
[2023-07-29 14:53] LABS: ALBUMIN 2.8 G/DL (3.2-5.2); BILIRUBIN,DIRECT 0.2 MG/DL (<0.4); BILIRUBIN,TOTAL 0.7 MG/DL (0.3-1.2); CALCIUM LEVEL 7.3 MG/DL (8.3-10.6); CREATININE FOR GFR 1.41 MG/DL (0.70-1.30); GLOMERULAR FILTRATION RATE 51.4 (>35); POTASSIUM SERUM 4.7 MMOL/L (3.5-5.1); TOTAL PROTEIN 5.3 G/DL (5.7-8.2)
[2023-07-29] MEDS ORDERED: ACETAMINOPHEN *IV* 1,000 MG in IV 1 EA IV ONE (16:40)
[2023-07-29] MEDS ORDERED: REFR1DRO8 OD (19:29)
[2023-07-29 20:00] VITALS: O2SAT 97
[2023-07-29 21:04] LABS: PROCALCITONIN 0.08 ng/ml
[2023-07-29] MEDS ORDERED: LACT20EL PO (21:43)
[2023-07-29 21:47] VITALS: BP 142/72; TEMP 98.2; O2SAT 97
== END 2023-07-29 21:47 | disposition home or self-care (01) ==
LOC: EDBD 13:01 → M ED 13:01
DX: J18.9 Pneumonia, unspecified organism (principal); U07.1 COVID-19; K59.00 Constipation, unspecified; E11.9 Type 2 diabetes mellitus without complications; I10 Essential (primary) hypertension; K21.9 Gastro-esophageal reflux disease without esophagitis; E78.5 Hyperlipidemia, unspecified; N18.30 Chronic kidney disease, stage 3 unspecified; Z88.2 Allergy status to sulfonamides; Z79.02 Long term (current) use of antithrombotics/antiplatelets; Z79.4 Long term (current) use of insulin; Z79.899 Other long term (current) drug therapy
CPT/HCPCS: 36415; 71045; 74176; 80048; 80076; 81001; 83690; 84145; 85025; 96374; 99284; J0131

== ENCOUNTER → 2023-09-06 | Outpatient (CLI) | payer OTHER, MEDICAID ==
[~2023-09-06] MED LIST changes: +LACT20EL PO; +REFR1DRO8 OD
[2023-09-06 16:21] LABS: HEMATOCRIT 42.4 % (42.0-52.0); HEMOGLOBIN 13.1 g/dl (13.5-17.5); MEAN CORPUSCULAR HEMOGLOBIN 30.3 pg (27.0-33.0); MEAN CORPUSCULAR HGB CONC 30.9 g/dl (32.0-36.5); MEAN CORPUSCULAR VOLUME 97.9 fl (80.0-96.0); PLATELET COUNT, AUTOMATED 246 10^3/uL (150-450); RED BLOOD COUNT 4.33 10^6/uL (4.30-6.10); WHITE BLOOD COUNT 13.2 10^3/uL (4.0-10.0)
[2023-09-06 16:34] LABS: ALBUMIN 3.7 G/DL (3.2-5.2); CALCIUM LEVEL 8.8 MG/DL (8.3-10.6); CREATININE FOR GFR 1.48 MG/DL (0.70-1.30); GLOMERULAR FILTRATION RATE 48.6 (>35); POTASSIUM SERUM 4.9 MMOL/L (3.5-5.1); TOTAL PROTEIN 6.4 G/DL (5.7-8.2)
[2023-09-06 16:35] LABS: FERRITIN 69.8 NG/ML (10.5-307.3)
[2023-09-06 16:45] LABS: HEMOGLOBIN A1c 8.2 % (4.0-6.0)
== END ==
LOC: M PLALAB 11:50
PROVIDERS: ATTEND Nurse Practitioner Adult Health
DX: E11.22 Type 2 diabetes mellitus with diabetic chronic kidney disease (principal); K29.70 Gastritis, unspecified, without bleeding

== ENCOUNTER 2023-09-20 01:28 | Emergency (ER) | payer MEDICAID, OTHER ==
[~2023-09-20] VITALS: Ht 162.6 cm; Wt 77.3 kg
[~2023-09-20 01:28] MED LIST changes: -ATEN25TA
[2023-09-20 02:16] LABS: BASO % 0.2 % (0.0-1.0); EOS # 0.3 10^3/uL (0.0-0.5); EOS % 2.1 % (0.0-3.0); HEMATOCRIT 36.9 % (42.0-52.0); HEMOGLOBIN 11.9 g/dl (13.5-17.5); LYMPH # 1.2 10^3/uL (1.5-5.0); LYMPH % 8.7 % (24.0-44.0); MEAN CORPUSCULAR HEMOGLOBIN 30.6 pg (27.0-33.0); MEAN CORPUSCULAR HGB CONC 32.2 g/dl (32.0-36.5); MEAN CORPUSCULAR VOLUME 94.9 fl (80.0-96.0); MONO # 1.6 10^3/uL (0.0-0.8); NEUTROPHILS # 10.3 10^3/uL (1.5-8.5); NEUTROPHILS % 76.3 % (36.0-66.0); PLATELET COUNT, AUTOMATED 191 10^3/uL (150-450); RED BLOOD COUNT 3.89 10^6/uL (4.30-6.10); WHITE BLOOD COUNT 13.5 10^3/uL (4.0-10.0)
[2023-09-20 02:27] LABS: INR 1.01; PARTIAL THROMBOPLASTIN TIME 27.2 SECONDS (24.8-34.2)
[2023-09-20 02:46] LABS: ALBUMIN 3.3 G/DL (3.2-5.2); BILIRUBIN,DIRECT 0.5 MG/DL (<0.4); BILIRUBIN,TOTAL 1.4 MG/DL (0.3-1.2); CALCIUM LEVEL 9.2 MG/DL (8.3-10.6); CREATININE FOR GFR 1.96 MG/DL (0.70-1.30); GLOMERULAR FILTRATION RATE 35.1 (>35); POTASSIUM SERUM 4.8 MMOL/L (3.5-5.1); TOTAL PROTEIN 5.9 G/DL (5.7-8.2)
[2023-09-20] MEDS ORDERED: AMLO1TAB25 PO (09:13)
[2023-09-20] MEDS ORDERED: GLIP10TA PO (09:13)
[2023-09-20] MEDS ORDERED: MUCI1TAB16 PO (09:13)
[2023-09-20] MEDS ORDERED: ASPI81TA26 PO (09:13)
[2023-09-20] MEDS ORDERED: ATOR80TA59 PO (09:13)
[2023-09-20 09:27] LABS: HEMATOCRIT 37.1 % (42.0-52.0); HEMOGLOBIN 11.8 g/dl (13.5-17.5)
[2023-09-20] MEDS ORDERED: HOME MED LIST COMPLETE! XX SCH (09:30)
[2023-09-20 09:42] VITALS: BP 136/72; TEMP 97.1; O2SAT 96
== END 2023-09-20 09:51 | disposition home or self-care (01) ==
LOC: M ED 01:28
DX: K64.8 Other hemorrhoids (principal); R19.7 Diarrhea, unspecified; K62.5 Hemorrhage of anus and rectum; I44.4 Left anterior fascicular block; I25.2 Old myocardial infarction; I44.0 Atrioventricular block, first degree; E11.9 Type 2 diabetes mellitus without complications; I10 Essential (primary) hypertension; E78.5 Hyperlipidemia, unspecified; N18.30 Chronic kidney disease, stage 3 unspecified; M10.9 Gout, unspecified; Z87.891 Personal history of nicotine dependence; Z88.2 Allergy status to sulfonamides; Z79.82 Long term (current) use of aspirin; Z79.02 Long term (current) use of antithrombotics/antiplatelets; Z79.899 Other long term (current) drug therapy

== ENCOUNTER 2024-02-18 11:55 | Emergency (ER) | payer OTHER ==
[~2024-02-18] VITALS: Ht 162.6 cm; Wt 69.5 kg
[~2024-02-18 11:55] MED LIST changes: +ASPI81TA26 PO; +ATOR80TA59 PO; +DOXY-323 PO; -DOXY-443 PO; +GLIP10TA PO
[2024-02-18] MEDS: LIDOCAINE W/EPINEPHRINE 1% 20ML VIAL SC ONE (12:15)
[2024-02-18 15:25] VITALS: O2SAT 99
[2024-02-18 15:30] VITALS: BP 166/94; TEMP 96.3
== END 2024-02-18 15:45 | disposition home or self-care (01) ==
LOC: M ED 11:55 → EDBD 11:55 → M ED 15:45
DX: S51.012A Laceration without foreign body of left elbow, initial encounter (principal); S00.01XA Abrasion of scalp, initial encounter; Y92.9 Unspecified place or not applicable; Y93.9 Activity, unspecified; Y99.9 Unspecified external cause status; E78.5 Hyperlipidemia, unspecified; K21.9 Gastro-esophageal reflux disease without esophagitis; I12.9 Hypertensive chronic kidney disease with stage 1 through stage 4 chronic kidney disease, or unspecified chronic kidney disease; Z88.2 Allergy status to sulfonamides; Z79.84 Long term (current) use of oral hypoglycemic drugs; Z79.899 Other long term (current) drug therapy; Z79.1 Long term (current) use of non-steroidal anti-inflammatories (NSAID)

== ENCOUNTER → 2024-09-11 | Outpatient (CLI) | payer OTHER ==
[~2024-09-11] MED LIST changes: +ATOR40TA75; -DOXY-323 PO; +DOXY-441 PO; -LACT10SO3 PO; +LACT10SO94 PO
== END ==
LOC: M RAD 15:59
PROVIDERS: ATTEND Internal Medicine Hematology & Oncology
DX: D72.829 Elevated white blood cell count, unspecified (principal)